=== PATIENT | male | born 1965 | race Two or more races ===

== ENCOUNTER 2016-10-21 18:49 | Inpatient (IN) | payer MEDICAID ==
[~2016-10-21] VITALS: Ht 170.2 cm; Wt 81.6 kg
[~2016-10-21 18:49] MED LIST: ACET325T53 PO; ASCO500T9 PO; BACL10TA PO; BISA10SU8 RC; FERR-58 PO; HYDR2VIA3 IVP; LINE600T2 PO; MAGN400O6 PO; MERO1VIA3 IV; MULT-24 PO; NA P133E RC; SENN8.6T6 PO; TAMS-12 PO; ZINC220C8 PO
[2016-10-21] MEDS ORDERED: IV SET PRIMARY 1 EA INFUS.SET MC ONE (19:48)
[2016-10-21] MEDS ORDERED: IV NS 0.9% 1,000 ML ONE (19:48)
[2016-10-21] MEDS ORDERED: ONDANSETRON HCL/PF 4 MG/2 ML VIAL ONE (19:48)
[2016-10-21] MEDS ORDERED: HYDROMORPHONE 1 MG/1 ML DISP.SYRIN ONE (19:48)
[2016-10-21 19:52] LABS: BASOPHILS # (AUTO) 0.1 /CMM (0.0-0.2); BASOPHILS % (AUTO) 0.8 % (0.0-2.0); DIFF TOTAL % 100 %; EOSINOPHILS % (AUTO) 0.2 % (0.0-6.0); HEMATOCRIT 31 % (39-51); HEMOGLOBIN 9.6 g/dL (13.5-17.5); LYMPHOCYTES # (AUTO) 2.3 /CMM (0.8-4.8); LYMPHOCYTES % (AUTO) 23.5 % (20.0-44.0); MEAN CORPUSCULAR HEMOGLOBIN 22 PG (26.0-33.0); MEAN CORPUSCULAR HGB CONC 31 g/dl (31.0-36.0); MEAN CORPUSCULAR VOLUME 69 fL (80-96); MONOCYTES # (AUTO) 0.5 /CMM (0.1-1.30); MONOCYTES % (AUTO) 4.9 % (2.0-12.0); NEUTROPHILS # (AUTO) 6.9 /CMM (1.8-8.9); NEUTROPHILS % (AUTO) 70.6 % (43.0-81.0); PLATELET COUNT (AUTO) 553 /CMM (150-450); RED BLOOD CELL COUNT(AUTO) 4.48 MIL/uL (4.5-6.0); WHITE BLOOD COUNT (AUTO) 9.8 K/uL (4.3-11.0)
[2016-10-21] MEDS ORDERED: ONDANSETRON HCL/PF 4 MG/2 ML VIAL IVP ONE (20:00)
[2016-10-21] MEDS ORDERED: IV NS 0.9% 1,000 ML BAG IV ONE (20:00)
[2016-10-21] MEDS ORDERED: HYDROMORPHONE INJ 2 MG/ML DISP.SYRIN IV ONE (20:00)
[2016-10-21 20:06] LABS: INR 1.02 (0.87-1.13); PROTHROMBIN TIME 10.7 SECS (9.5-12.7)
[2016-10-21 20:08] LABS: BILIRUBIN,TOTAL 0.1 mg/dL (0.2-1.0); CALCIUM, SERUM 8.4 mg/dL (8.5-10.1); CREATININE 1.3 mg/dL (0.6-1.3); INDIRECT BILIRUBIN 0.1 mg/dL (0.0-1.1); POTASSIUM 4.1 mmol/L (3.5-5.1); TOTAL PROTEIN, SERUM 8.2 g/dL (6.4-8.2)
[2016-10-21 20:22] LABS: LACTIC ACID 0.9 mmol/L (0.4-2.0)
[2016-10-21] MEDS ORDERED: CT SWABBABLE VALVE TRANS SET 1 EA INFUS.SET MC ONE (20:24)
[2016-10-21] MEDS ORDERED: IV NS 0.9% 250 ML IV ONE (20:24)
[2016-10-21] MEDS ORDERED: IOHEXOL-300 100 ML VIAL IV ONE (20:24)
[2016-10-21] MEDS ORDERED: PIPERACILLIN /TAZOBACTAM 3.375 G in IV D5W 50 ML IV ONE (20:30)
[2016-10-21 20:50] VITALS: BP 101/57
[2016-10-21] MEDS ORDERED: MAG HYDROX/AL HYDROX/SIMETH 30 ML UDC PO PRN (21:00)
[2016-10-21] MEDS ORDERED: ACETAMINOPHEN 325 MG TABLET PO PRN (21:00)
[2016-10-21] MEDS ORDERED: MORPHINE SULFATE INJ 2 MG/ML DISP.SYRIN IV PRN (21:00)
[2016-10-21] MEDS ORDERED: HYDROCODONE/APAP 5/325MG 1 EACH TABLET PO PRN (21:00)
[2016-10-21] MEDS ORDERED: FEE PK DOSING 1 MIN EA MC ONE (21:00)
[2016-10-21] MEDS ORDERED: Z GUARD REMEDY 2 OZ OINT TP PRN (21:00)
[2016-10-21] MEDS ORDERED: BISACODYL SUPP (10 MG) 10 MG/SUPP.RECT SUPP.RECT RC PRN (21:00)
[2016-10-21] MEDS ORDERED: ZOLPIDEM TARTRATE 5 MG TABLET PO PRN (21:00)
[2016-10-21] MEDS ORDERED: NA PHOS,M-B/NA PHOS,DI-BA 1 EA ENEMA RC PRN (21:00)
[2016-10-21] MEDS ORDERED: ONDANSETRON HCL/PF 4 MG/2 ML VIAL IVP PRN (21:00)
[2016-10-21] MEDS ORDERED: MAGNESIUM HYDROXIDE 30 ML UDC PO PRN (21:00)
[2016-10-21 21:10] VITALS: BP 101/57
[2016-10-21] MEDS ORDERED: IV D5W 250 ML IV ONE (21:54)
[2016-10-21] MEDS ORDERED: VANCOMYCIN 1 GM VIAL ONE (21:54)
[2016-10-21] MEDS ORDERED: SECONDARY IV SET 1 EA INFUS.SET MC ONE (21:54)
[2016-10-21] MEDS: VANCOMYCIN 1 GM in IV D5W 250 ML IV SCH (22:29)
[2016-10-21] MEDS ORDERED: HYDROMORPHONE INJ 2 MG/ML DISP.SYRIN ONE (22:41)
[2016-10-21] MEDS: HYDROMORPHONE INJ 2 MG/ML DISP.SYRIN IV PRN (22:46)
[2016-10-21] MEDS ORDERED: TAMSULOSIN 0.4 MG CAP.SR.24H ONE (23:33)
[2016-10-21] MEDS: TAMSULOSIN 0.4 MG CAP.SR.24H PO SCH (23:42)
[2016-10-22] VITALS (7 sets, daily range): BP systolic 89–113; BP diastolic 52–65
[2016-10-22] MEDS: HYDROMORPHONE INJ 2 MG/ML DISP.SYRIN IV PRN ×6 (02:47→23:22)
[2016-10-22] MEDS ORDERED: SECONDARY IV SET 1 EA INFUS.SET MC ONE ×2 (06:53→21:41)
[2016-10-22 06:57] LABS: BASOPHILS # (AUTO) 0.1 /CMM (0.0-0.2); BASOPHILS % (AUTO) 0.8 % (0.0-2.0); DIFF TOTAL % 100 %; EOSINOPHILS # (AUTO) 0.1 /CMM (0.0-0.7); HEMATOCRIT 28 % (39-51); HEMOGLOBIN 8.7 g/dL (13.5-17.5); LYMPHOCYTES # (AUTO) 2.5 /CMM (0.8-4.8); LYMPHOCYTES % (AUTO) 28.1 % (20.0-44.0); MEAN CORPUSCULAR HEMOGLOBIN 22 PG (26.0-33.0); MEAN CORPUSCULAR HGB CONC 32 g/dl (31.0-36.0); MEAN CORPUSCULAR VOLUME 69 fL (80-96); MONOCYTES # (AUTO) 0.4 /CMM (0.1-1.30); NEUTROPHILS # (AUTO) 5.8 /CMM (1.8-8.9); NEUTROPHILS % (AUTO) 65.1 % (43.0-81.0); PLATELET COUNT (AUTO) 463 /CMM (150-450); RED BLOOD CELL COUNT(AUTO) 3.98 MIL/uL (4.5-6.0); WHITE BLOOD COUNT (AUTO) 8.9 K/uL (4.3-11.0)
[2016-10-22] MEDS: PIPERACILLIN /TAZOBACTAM 3.375 G in IV D5W 50 ML IV SCH ×2 (07:04→12:26)
[2016-10-22 07:22] LABS: ALBUMIN 2.7 g/dL (3.4-5.0); BILIRUBIN,TOTAL 0.1 mg/dL (0.2-1.0); CALCIUM, SERUM 8.3 mg/dL (8.5-10.1); PHOSPHORUS 3.3 mg/dL (2.5-4.9); POTASSIUM 3.8 mmol/L (3.5-5.1); TOTAL PROTEIN, SERUM 7.4 g/dL (6.4-8.2)
[2016-10-22 09:02] LABS: ANISOCYTOSIS 3+; BAND % (MANUAL) 3 % (0.0-5.0); BASOPHILS % (MANUAL) 1 % (0.0-2.0); EOSINOPHILS % (MANUAL) 3 % (0-4); LYMPHOCYTES % (MANUAL) 30 % (16-48); MICROCYTOSIS 3+; PLATELET ESTIMATE INCREASED
[2016-10-22 09:03] LABS: HYPOCHROMASIA 1+
[2016-10-22] MEDS: FERROUS SULFATE (325 MG) 325 MG/TAB TABLET PO SCH (09:25)
[2016-10-22] MEDS: SENNOSIDES 8.6 MG TABLET PO SCH (09:25)
[2016-10-22] MEDS: ASCORBIC ACID 500 MG TABLET PO SCH (09:25)
[2016-10-22] MEDS: MULTIVITAMINS,THERAPEUTIC 1 UDTAB TABLET PO SCH (09:25)
[2016-10-22] MEDS: PANTOPRAZOLE 40 MG VIAL IV SCH (09:25)
[2016-10-22] MEDS: BACLOFEN (10 MG) 10 MG TABLET PO SCH ×3 (09:25→17:00)
[2016-10-22] MEDS: ZINC SULFATE 220 MG CAPSULE PO SCH (09:29)
[2016-10-22] MEDS: VANCOMYCIN 1 GM in IV D5W 250 ML IV SCH ×2 (09:30→22:22)
[2016-10-22] MEDS: IV NS 0.9% 1,000 ML IV PRN ×2 (09:32→22:34)
[2016-10-22 12:45] LABS: IRON, SERUM 17 ug/dl (50-175); PERCENT SATURATION 6 % (14-33); TOTAL IRON BINDING CAPACITY 283 ug/dl (250-450)
[2016-10-22] MEDS: MEROPENEM 500 MG in IV NS 0.9% 50 ML IV SCH (21:37)
[2016-10-22] MEDS: TAMSULOSIN 0.4 MG CAP.SR.24H PO SCH (21:37)
[2016-10-22] MEDS ORDERED: IV NS 0.9% 1,000 ML ONE (22:29)
[2016-10-23] MEDS: HYDROMORPHONE INJ 2 MG/ML DISP.SYRIN IV PRN ×5 (03:13→20:16)
[2016-10-23] MEDS: MEROPENEM 500 MG in IV NS 0.9% 50 ML IV SCH ×3 (04:35→21:47)
[2016-10-23 08:00] VITALS: BP 105/70
[2016-10-23] MEDS: FERROUS SULFATE (325 MG) 325 MG/TAB TABLET PO SCH (08:00)
[2016-10-23] MEDS: PANTOPRAZOLE 40 MG VIAL IV SCH (08:27)
[2016-10-23] MEDS: MULTIVITAMINS,THERAPEUTIC 1 UDTAB TABLET PO SCH (09:00)
[2016-10-23] MEDS: ASCORBIC ACID 500 MG TABLET PO SCH (09:00)
[2016-10-23] MEDS: BACLOFEN (10 MG) 10 MG TABLET PO SCH ×3 (09:00→17:00)
[2016-10-23] MEDS: SENNOSIDES 8.6 MG TABLET PO SCH ×2 (09:00→14:54)
[2016-10-23] MEDS: ZINC SULFATE 220 MG CAPSULE PO SCH (09:00)
[2016-10-23 09:14] LABS: CALCIUM, SERUM 8.2 mg/dL (8.5-10.1); CREATININE 0.9 mg/dL (0.6-1.3); POTASSIUM 3.3 mmol/L (3.5-5.1)
[2016-10-23] MEDS: VANCOMYCIN 1 GM in IV D5W 250 ML IV SCH ×2 (09:23→22:00)
[2016-10-23] MEDS ORDERED: POTASSIUM CHLORIDE 20 MEQ TAB.PRT.SR PO ONE (10:30)
[2016-10-23 14:19] LABS: KETONES,URINE NEGATIVE (NEGATIVE); LEUKOCYTE ESTERASE ,URINE 3+ (NEGATIVE)
[2016-10-23 14:25] LABS: ADD UA MICROSCOPIC YES
[2016-10-23 14:29] LABS: ADD URINE CULTURE YES; WBC,URINE 81-100 /HPF (0-3)
[2016-10-23 16:00] VITALS: BP 107/78
[2016-10-23 20:00] VITALS: BP 116/71
[2016-10-23] MEDS: IV NS 0.9% 1,000 ML IV PRN (20:19)
[2016-10-23] MEDS: MUPIROCIN OINT 2% 22 GM TUBE SCH (21:00)
[2016-10-23 22:00] VITALS: BP 112/71
[2016-10-23] MEDS: TAMSULOSIN 0.4 MG CAP.SR.24H PO SCH (22:00)
[2016-10-23] MEDS ORDERED: MUPIROCIN OINT 2% 22 GM TUBE ONE (22:22)
[2016-10-24] MEDS: VANCOMYCIN 1 GM in IV D5W 250 ML IV SCH ×2 (00:06→23:00)
[2016-10-24] MEDS: HYDROMORPHONE INJ 2 MG/ML DISP.SYRIN IV PRN ×6 (00:15→20:46)
[2016-10-24] MEDS: MEROPENEM 500 MG in IV NS 0.9% 50 ML IV SCH ×3 (05:05→21:17)
[2016-10-24 07:06] LABS: CREATININE 0.9 mg/dL (0.6-1.3); POTASSIUM 3.1 mmol/L (3.5-5.1)
[2016-10-24 08:00] VITALS: BP 121/66
[2016-10-24] MEDS: PANTOPRAZOLE 40 MG VIAL IV SCH (08:21)
[2016-10-24] MEDS: BACLOFEN (10 MG) 10 MG TABLET PO SCH ×4 (08:29→16:38)
[2016-10-24] MEDS: MULTIVITAMINS,THERAPEUTIC 1 UDTAB TABLET PO SCH (08:30)
[2016-10-24] MEDS: FERROUS SULFATE (325 MG) 325 MG/TAB TABLET PO SCH (08:30)
[2016-10-24] MEDS: ZINC SULFATE 220 MG CAPSULE PO SCH (08:31)
[2016-10-24] MEDS: ASCORBIC ACID 500 MG TABLET PO SCH (08:31)
[2016-10-24] MEDS: SENNOSIDES 8.6 MG TABLET PO SCH (08:48)
[2016-10-24] MEDS: MUPIROCIN OINT 2% 22 GM TUBE SCH ×2 (09:00→21:21)
[2016-10-24] MEDS ORDERED: POTASSIUM CL. PREMIX PERIPHER. 50 ML IV SCH (10:00)
[2016-10-24] MEDS ORDERED: POTASSIUM CHLORIDE 20 MEQ TAB.PRT.SR PO ONE (10:00)
[2016-10-24 16:00] VITALS: BP 142/90
[2016-10-24 20:00] VITALS: BP 106/62
[2016-10-24] MEDS: TAMSULOSIN 0.4 MG CAP.SR.24H PO SCH (21:22)
[2016-10-25] MEDS: HYDROMORPHONE INJ 2 MG/ML DISP.SYRIN IV PRN ×4 (01:23→13:41)
[2016-10-25] MEDS: IV NS 0.9% 1,000 ML IV PRN (05:13)
[2016-10-25] MEDS: MEROPENEM 500 MG in IV NS 0.9% 50 ML IV SCH ×2 (05:14→12:47)
[2016-10-25 07:11] LABS: CALCIUM, SERUM 8.2 mg/dL (8.5-10.1); POTASSIUM 3.6 mmol/L (3.5-5.1)
[2016-10-25 08:00] VITALS: BP 112/64
[2016-10-25] MEDS: MUPIROCIN OINT 2% 22 GM TUBE SCH (09:00)
[2016-10-25] MEDS: SENNOSIDES 8.6 MG TABLET PO SCH (09:00)
[2016-10-25 09:20] VITALS: BP 112/64
[2016-10-25] MEDS: ASCORBIC ACID 500 MG TABLET PO SCH (09:41)
[2016-10-25] MEDS: FERROUS SULFATE (325 MG) 325 MG/TAB TABLET PO SCH (09:41)
[2016-10-25] MEDS: MULTIVITAMINS,THERAPEUTIC 1 UDTAB TABLET PO SCH (09:41)
[2016-10-25] MEDS: PANTOPRAZOLE 40 MG VIAL IV SCH (09:41)
[2016-10-25] MEDS: ZINC SULFATE 220 MG CAPSULE PO SCH (09:41)
[2016-10-25] MEDS: BACLOFEN (10 MG) 10 MG TABLET PO SCH ×2 (09:41→12:46)
[2016-10-25 16:00] VITALS: BP 92/55
[2016-10-25] MEDS ORDERED: FLU VACC QS 2016-17(36MOS+)/PF 0.5 ML DISP.SYRIN IM ONE (16:00)
== END 2016-10-25 17:00 | DRG 383 ==
LOC: ER 18:52 → MED 20:30
PROVIDERS: ADMIT Family Medicine; ATTEND Family Medicine
DX: L03.311 Cellulitis of abdominal wall (principal); E43 Unspecified severe protein-calorie malnutrition; L89.152 Pressure ulcer of sacral region, stage 2; K63.2 Fistula of intestine; G82.20 Paraplegia, unspecified; L02.211 Cutaneous abscess of abdominal wall; Y92.9 Unspecified place or not applicable; I25.10 Atherosclerotic heart disease of native coronary artery without angina pectoris; J44.9 Chronic obstructive pulmonary disease, unspecified; I12.9 Hypertensive chronic kidney disease with stage 1 through stage 4 chronic kidney disease, or unspecified chronic kidney disease; N18.9 Chronic kidney disease, unspecified; D64.9 Anemia, unspecified; D47.3 Essential (hemorrhagic) thrombocythemia; D50.9 Iron deficiency anemia, unspecified; G89.4 Chronic pain syndrome; Z22.322 Carrier or suspected carrier of Methicillin resistant Staphylococcus aureus; Z87.891 Personal history of nicotine dependence; Z68.28 Body mass index [BMI] 28.0-28.9, adult; N39.0 Urinary tract infection, site not specified; M19.90 Unspecified osteoarthritis, unspecified site; Z93.3 Colostomy status; Z90.5 Acquired absence of kidney; W34.00XS Accidental discharge from unspecified firearms or gun, sequela; Z93.2 Ileostomy status; N40.1 Benign prostatic hyperplasia with lower urinary tract symptoms
CPT/HCPCS: 36415; 80048-TC; 80053-TC; 80076-TC; 80202-TC; 81000-TC; 83540-TC; 83605-TC; 84100-TC; 85025-TC; 85730-TC; 87040-TC; 87081-TC; 87086-TC; A4216; A4606; A6253; A6403; C9113; J1170; J2185; J2405; J2543; J3370; J7030; J7050; J7060; Q2036; Q9967; Z7610

== ENCOUNTER 2017-02-14 13:44 | Inpatient (IN) | payer MEDICAID ==
[~2017-02-14] VITALS: Ht 167.6 cm; Wt 99.6 kg
--- NOTE | 2017-02-14 13:56 | NUR ---
PT [id number] FROM [facility]: BACK PAIN. ABDOMINAL ABSCESS. PLACED ON MONITOR. VSS. AWAITING MD ORDER
--- NOTE | 2017-02-14 13:56 | NUR ---
PT HAS BILLY PICC LINE #18
--- NOTE | 2017-02-14 14:04 | NUR ---
DR EM AT BEDSIDE FOR EVAL
[2017-02-14] MEDS ORDERED: HYDROMORPHONE INJ 2 MG/ML DISP.SYRIN ONE ×2 (14:17→15:42)
--- NOTE | 2017-02-14 14:20 | NUR ---
PT TAKEN TO CT VIA [facility]
[2017-02-14] MEDS ORDERED: HYDROMORPHONE INJ 2 MG/ML DISP.SYRIN IV ONE ×2 (14:30→16:00)
[2017-02-14 14:37] LABS: BASOPHILS # (AUTO) 0.1 /CMM (0.0-0.2); BASOPHILS % (AUTO) 0.5 % (0.0-2.0); EOSINOPHILS % (AUTO) 0.2 % (0.0-6.0); HEMATOCRIT 40 % (39-51); LYMPHOCYTES # (AUTO) 2.6 /CMM (0.8-4.8); LYMPHOCYTES % (AUTO) 22.1 % (20.0-44.0); MEAN CORPUSCULAR HEMOGLOBIN 26 PG (26.0-33.0); MEAN CORPUSCULAR HGB CONC 33 g/dl (31.0-36.0); MEAN CORPUSCULAR VOLUME 79 fL (80-96); MONOCYTES # (AUTO) 0.7 /CMM (0.1-1.30); MONOCYTES % (AUTO) 5.7 % (2.0-12.0); NEUTROPHILS # (AUTO) 8.1 /CMM (1.8-8.9); NEUTROPHILS % (AUTO) 71.5 % (43.0-81.0); PLATELET COUNT (AUTO) 297 /CMM (150-450); RED BLOOD CELL COUNT(AUTO) 5.02 MIL/uL (4.5-6.0); WHITE BLOOD COUNT (AUTO) 11.5 K/uL (4.3-11.0)
[2017-02-14 14:38] LABS: CALCIUM, SERUM 8.6 mg/dL (8.5-10.1); CREATININE 0.9 mg/dL (0.6-1.3)
[2017-02-14 14:43] LABS: INR 0.95 (0.87-1.13); PROTHROMBIN TIME 9.9 SECS (9.5-12.7)
[2017-02-14 14:44] LABS: ALBUMIN 3.6 g/dL (3.4-5.0); BILIRUBIN,DIRECT 0.1 mg/dL (0.0-0.2); BILIRUBIN,TOTAL 0.2 mg/dL (0.2-1.0); TOTAL PROTEIN, SERUM 8.2 g/dL (6.4-8.2)
[2017-02-14] MEDS ORDERED: PIPERACILLIN /TAZOBACTAM 3.375 G in IV D5W 50 ML IV ONE (15:49)
[2017-02-14] MEDS ORDERED: IV SET PRIMARY PUMP SET 1 EA INFUS.SET MC ONE ×2 (15:50→20:44)
[2017-02-14] MEDS ORDERED: HYDR-552 PO ×2 (15:51)
[2017-02-14] MEDS ORDERED: VIT1CAPS32 PO (15:51)
[2017-02-14] MEDS ORDERED: ZOLP5TAB2 PO (15:51)
[2017-02-14] MEDS ORDERED: ONDA4TAB5 PO (15:51)
[2017-02-14] MEDS ORDERED: PANT40TA2 PO (15:51)
--- NOTE | 2017-02-14 16:08 | NUR ---
PATIENT ASSIGNED TO 325-1 DX ABDOMINAL ABSCESS
--- NOTE | 2017-02-14 16:13 | NUR ---
GAVE REPORT TO KYLEE JIMENEZ MEDSURG 325-1 DX ABDOMINAL ABSCESS. SAURABH MARTINEZ NP ADMITTING. TRANSFER BY [facility] VIA [facility]
[2017-02-14] MEDS ORDERED: ONDANSETRON HCL/PF 4 MG/2 ML VIAL IVP PRN (17:30)
[2017-02-14] MEDS ORDERED: NA PHOS,M-B/NA PHOS,DI-BA 1 EA ENEMA RC PRN (17:30)
[2017-02-14] MEDS ORDERED: MAGNESIUM HYDROXIDE 30 ML UDC PO PRN (17:30)
[2017-02-14] MEDS ORDERED: Z GUARD REMEDY 2 OZ OINT TP PRN (17:30)
[2017-02-14] MEDS ORDERED: ACETAMINOPHEN 325 MG TABLET PO PRN (17:30)
[2017-02-14] MEDS ORDERED: MAG HYDROX/AL HYDROX/SIMETH 30 ML UDC PO PRN (17:30)
[2017-02-14] MEDS ORDERED: BISACODYL SUPP (10 MG) 10 MG/SUPP.RECT SUPP.RECT RC PRN (17:30)
[2017-02-14] MEDS ORDERED: ZOLPIDEM TARTRATE 5 MG TABLET PO PRN (17:30)
[2017-02-14] MEDS ORDERED: HYDROMORPHONE MDV 2 MG/ML VIAL IV PRN (17:30)
[2017-02-14] MEDS ORDERED: PIPERACILLIN /TAZOBACTAM 3.375 G in IV D5W 50 ML IV SCH (18:00)
--- NOTE | 2017-02-14 18:00 | NUR ---
AM RN NOTE Received patient from ER via kenneth, A/O X3 verbally responsive. No SOB noted resp even and non-labored. Skin warm and dry to touch. PICC line intact and patent on BILLY #18. Body assessment done, able to take pictures of abdominal area but pt refused to take pics of other parts of his body. Will endorse to next shift. Ileostomy and colostomy intact. Bed in low locked position. Diet ordered. Will continue to monitor. Call light with in reach.
[2017-02-14] MEDS: HYDROMORPHONE INJ 2 MG/ML DISP.SYRIN IV PRN ×2 (18:34→23:05)
--- NOTE | 2017-02-14 19:15 | NUR ---
AM RN NOTE Patient awake, lying in his bed. Verbally responsive. Pain meds given for back pain with effective results. Endorsed care to next shift nurse and endorse about skin pictures.
--- NOTE | 2017-02-14 19:30 | NUR ---
RN NOTE; RECEIVED PT SITTING IN BED AWAKE AND ALERT. BREATHING EVENLY. NO SOB. NO DISTRESS. SKIN WARM AND DRY. COLOSTOMY BAGS IN PLACE. DRAINING WELL. DRESSING ON THE ABD INTACT AND DRY. NEEDS ATTENDED . ASSISTED W/ ADLS. CALL LIGHT WITHIN REACH. WILL CONT TO MONITOR
[2017-02-14 20:00] VITALS: BP 108/69
[2017-02-14] MEDS ORDERED: SECONDARY IV SET 1 EA INFUS.SET MC ONE (20:44)
[2017-02-14] MEDS: IV NS 0.9% 1,000 ML IV PRN (20:58)
[2017-02-14] MEDS: HYDROCODONE/APAP 5/325MG 1 EACH TABLET PO PRN (21:04)
--- NOTE | 2017-02-14 21:04 | NUR ---
norco given per pt's request for c/o ble, abd and lower back pain. will cont to monitor
[2017-02-14] MEDS: PIPERACILLIN /TAZOBACTAM 3.375 G in IV D5W 50 ML IV SCH (21:10)
[2017-02-14] MEDS: TAMSULOSIN 0.4 MG CAP.SR.24H PO SCH (21:16)
[2017-02-15] MEDS: HYDROMORPHONE INJ 2 MG/ML DISP.SYRIN IV PRN ×5 (03:05→20:22)
--- NOTE | 2017-02-15 03:08 | NUR ---
DILAUDID GIVEN FOR C/O SEVERE GEN BODY PAIN INCLUDING BLES AND BACK. WILL CONT TO MONITOR
[2017-02-15] MEDS: PIPERACILLIN /TAZOBACTAM 3.375 G in IV D5W 50 ML IV SCH ×4 (04:13→21:47)
--- NOTE | 2017-02-15 06:48 | NUR ---
RN NOTE; PT IN BED DOZING INTERMITTENTLY. BREATHING EVENLY. NO SOB. NO DISTRESS. NO ACUTE CHANGES DURING THE NIGHT . W/ ON AND OFF C/O PAIN. PAIN MEDICATIONS GIVEN ORDERED PER PT'S REQUEST. ASSISTED W/ ADLS, CALL LIGHT WITHIN REACH. WILL CONT TO MONITOR AND WILL ENDORSE TO AM SHIFT FOR SHERINE .
--- NOTE | 2017-02-15 07:30 | NUR ---
MS/RN OPENING NOTE PT. IS IN BED SLEEPING, RESPONDS TO NAME. PT. IS A&OX4. NO S/S OF SOB, NO SIGNS OF DISTRESS. PT. HAS A LEFT UPPER ARM PICC LINE WITH IV FLUIDS INFUSING AT 75ML/HR. PT. HAS URINAL NEAR BEDSIDE, AND VISIBLE ABDOMINAL FISTULA. BED IS IN LOW POSITION, 2 SIDE RAILS UP, CALL LIGHT WITHIN REACH, AND ALL NEEDS ATTENDED TO. WILL CONTINUE TO MONITOR PT.
[2017-02-15 07:44] LABS: BASOPHILS % (AUTO) 0.5 % (0.0-2.0); EOSINOPHILS # (AUTO) 0.1 /CMM (0.0-0.7); EOSINOPHILS % (AUTO) 1.4 % (0.0-6.0); HEMATOCRIT 37 % (39-51); LYMPHOCYTES # (AUTO) 2.8 /CMM (0.8-4.8); LYMPHOCYTES % (AUTO) 32.6 % (20.0-44.0); MEAN CORPUSCULAR HEMOGLOBIN 26 PG (26.0-33.0); MEAN CORPUSCULAR HGB CONC 32 g/dl (31.0-36.0); MEAN CORPUSCULAR VOLUME 80 fL (80-96); MONOCYTES # (AUTO) 0.6 /CMM (0.1-1.30); MONOCYTES % (AUTO) 6.6 % (2.0-12.0); NEUTROPHILS # (AUTO) 5.1 /CMM (1.8-8.9); NEUTROPHILS % (AUTO) 58.9 % (43.0-81.0); PLATELET COUNT (AUTO) 293 /CMM (150-450); RDW COEFFICIENT OF VARIATION 17.9 (11.5-15.0); RED BLOOD CELL COUNT(AUTO) 4.68 MIL/uL (4.5-6.0); WHITE BLOOD COUNT (AUTO) 8.6 K/uL (4.3-11.0)
[2017-02-15 07:54] LABS: CALCIUM, SERUM 8.2 mg/dL (8.5-10.1); CREATININE 0.8 mg/dL (0.6-1.3); MAGNESIUM 1.8 mg/dL (1.8-2.4); PHOSPHORUS 3.1 mg/dL (2.5-4.9); POTASSIUM 3.7 mmol/L (3.5-5.1)
[2017-02-15 08:00] VITALS: BP 105/50
--- NOTE | 2017-02-15 08:00 | NUR ---
MS/RN PT. REFUSED TO HAVE VITAL SIGNS TAKEN WHEN CONDUCTOR FREIGHT MADE ROUNDS. PT. AGREED TO HAVE VITALS TAKEN AT 0900.
[2017-02-15 08:01] LABS: THYROID STIMULATING HORMONE 0.729 uIU/mL (0.358-3.74)
[2017-02-15] MEDS: BACLOFEN (10 MG) 10 MG TABLET PO SCH ×3 (08:58→16:24)
[2017-02-15] MEDS: SENNOSIDES 8.6 MG TABLET PO SCH (08:58)
[2017-02-15] MEDS: PANTOPRAZOLE 40 MG TABLET.DR PO SCH (08:58)
[2017-02-15] MEDS: FERROUS SULFATE (325 MG) 325 MG/TAB TABLET PO SCH (08:58)
[2017-02-15] MEDS: ASCORBIC ACID 500 MG TABLET PO SCH (08:58)
[2017-02-15 09:00] VITALS: BP 105/50
[2017-02-15] MEDS: HYDROCODONE/APAP 5/325MG 1 EACH TABLET PO PRN (09:13)
[2017-02-15] MEDS: IV NS 0.9% 1,000 ML IV PRN (13:38)
[2017-02-15 16:00] VITALS: BP 117/74
--- NOTE | 2017-02-15 19:30 | NUR ---
RN NOTE; RECEIVED PT SITTING IN THE BED AWAKE AND ALERT. BREATHING EVENLY. NO SOB. NO DISTRESS. ON AND OFF C/O BLE AND CHRONIC LOW BACK PAIN. OSTOMIE IN PLACE. ON ONGOING IVF AND ATBs W/ NO COMPLICATIONS. NEED ATTENDED. CALL LIGHT WITHIN REACH, WILL CONT TO MONITOR.
[2017-02-15 20:00] VITALS: BP 111/57
--- NOTE | 2017-02-15 20:25 | NUR ---
DILAUDID GIVEN FOR C/O SEVERE GEN BODY PAIN INCLUDING BLES AND BACK. WILL CONT TO MONITOR
[2017-02-15] MEDS: TAMSULOSIN 0.4 MG CAP.SR.24H PO SCH (21:47)
[2017-02-15 22:25] LABS: APPEARANCE,URINE CLEAR (CLEAR); BILIRUBIN,URINE NEGATIVE (NEGATIVE); BLOOD, URINE NEGATIVE Ery/uL (NEGATIVE); COLOR,URINE YELLOW (YELLOW); KETONES,URINE NEGATIVE (NEGATIVE); LEUKOCYTE ESTERASE ,URINE NEGATIVE (NEGATIVE); NITRITE, URINE NEGATIVE (NEGATIVE); PROTEIN,URINE TRACE mg/dl (NEGATIVE); UGLUCOSE NEGATIVE (NEGATIVE); UROBILINOGEN,URINE 0.2 EU/dL (0.2)
[2017-02-15 22:30] LABS: ADD URINE CULTURE NO; BACTERIA,URINE None seen /HPF (None Seen); MUCUS,URINE Few /LPF (None Seen); RBC,URINE 0-2 /HPF (0-2); SQUAMOUS EPITHELIAL CELL,UR Few /HPF (None Seen); WBC,URINE 0-2 /HPF (0-3)
[2017-02-16] MEDS: HYDROMORPHONE INJ 2 MG/ML DISP.SYRIN IV PRN ×7 (00:26→23:25)
[2017-02-16] MEDS: IV NS 0.9% 1,000 ML IV PRN (00:27)
--- NOTE | 2017-02-16 00:27 | NUR ---
DILAUDID GIVEN FOR C/O SEVERE GEN BODY PAIN INCLUDING BLES AND BACK. WILL CONT TO MONITOR
[2017-02-16] MEDS: PIPERACILLIN /TAZOBACTAM 3.375 G in IV D5W 50 ML IV SCH (04:29)
--- NOTE | 2017-02-16 04:32 | NUR ---
DILAUDID GIVEN FOR C/O SEVERE GEN BODY PAIN INCLUDING BLES AND BACK. WILL CONT TO MONITOR
--- NOTE | 2017-02-16 06:16 | NUR ---
RN NOTE; PT IN BED AWAKE AND ALERT. BREATHING EVENLY. NO SOB. NO DISTRESS. NO ACUTE CHANGES DURING THE NIGHT . W/ ON AND OFF C/O PAIN. PAIN MEDICATIONS GIVEN ORDERED PER PT'S REQUEST. ASSISTED W/ ADLS, CALL LIGHT WITHIN REACH. WILL CONT TO MONITOR AND WILL ENDORSE TO AM SHIFT FOR SHERINE .
--- NOTE | 2017-02-16 07:30 | NUR ---
MS RN RECEIVED ON BED, AWAKE,ALERT,ORIENTED X3 NOT IN ANY FORM OF DISTRESS, RESPIRATIONS EVEN AND UNLABORED,NO SOB NOTED, LUNGS ARE CLEAR,ABDOMEN SOFT,POSITIVE BOWEL SOUNDS, DENIES PAIN AT THIS TIME, WILL MONITOR PATIENT'S CONDITION.
[2017-02-16 08:00] VITALS: BP 96/56
--- NOTE | 2017-02-16 08:30 | NUR ---
MS JIMENEZ BREAKFAST SERVED,DUE MEDS GIVEN,TOLERATED WELL.
[2017-02-16 08:44] LABS: BASOPHILS % (AUTO) 0.6 % (0.0-2.0); EOSINOPHILS # (AUTO) 0.1 /CMM (0.0-0.7); EOSINOPHILS % (AUTO) 1.5 % (0.0-6.0); HEMATOCRIT 37 % (39-51); LYMPHOCYTES # (AUTO) 2.4 /CMM (0.8-4.8); LYMPHOCYTES % (AUTO) 30.7 % (20.0-44.0); MEAN CORPUSCULAR HEMOGLOBIN 26 PG (26.0-33.0); MEAN CORPUSCULAR HGB CONC 33 g/dl (31.0-36.0); MEAN CORPUSCULAR VOLUME 80 fL (80-96); MONOCYTES # (AUTO) 0.6 /CMM (0.1-1.30); NEUTROPHILS # (AUTO) 4.8 /CMM (1.8-8.9); NEUTROPHILS % (AUTO) 60.2 % (43.0-81.0); PLATELET COUNT (AUTO) 231 /CMM (150-450); RED BLOOD CELL COUNT(AUTO) 4.59 MIL/uL (4.5-6.0); WHITE BLOOD COUNT (AUTO) 7.9 K/uL (4.3-11.0)
[2017-02-16] MEDS: SENNOSIDES 8.6 MG TABLET PO SCH (08:46)
[2017-02-16] MEDS: ASCORBIC ACID 500 MG TABLET PO SCH (08:46)
[2017-02-16] MEDS: FERROUS SULFATE (325 MG) 325 MG/TAB TABLET PO SCH (08:46)
[2017-02-16] MEDS: PANTOPRAZOLE 40 MG TABLET.DR PO SCH (08:46)
[2017-02-16] MEDS: BACLOFEN (10 MG) 10 MG TABLET PO SCH ×3 (08:46→18:56)
[2017-02-16 09:14] LABS: CALCIUM, SERUM 8.1 mg/dL (8.5-10.1); CREATININE 0.8 mg/dL (0.6-1.3); MAGNESIUM 1.8 mg/dL (1.8-2.4); POTASSIUM 3.9 mmol/L (3.5-5.1)
--- NOTE | 2017-02-16 11:32 | NUR ---
WOUND CARE CONSULT: PT REFUSED SKIN ASSESSMENT EXCEPT FOR ABDOMINAL AREA. PT NOTED TO HAVE 2 FISTULAS TO ABDOMEN WHICH ARE PROTECTED WITH MEPILEX. SCANT PINK DRAINAGE NOTED. COLOSTOMY NOTED WITH POUCH. RECOMMEND LOW AIRLOSS BED FOR DEX SCORE OF 12. DISCUSSED WITH NURSING STAFF. WILL SEE PRN. IN AGREEMENT WITH PLAN OF CARE.
[2017-02-16] MEDS: MEROPENEM 1 G in IV NS 0.9% 100 ML IV SCH ×2 (14:54→21:38)
[2017-02-16 16:00] VITALS: BP 113/59
--- NOTE | 2017-02-16 17:00 | NUR ---
MS RN PATIENT TRANSFERRED TO ROOM 309 BED 1 DUE TO OTHER PATIENT IS ISOLATION FOR MRSA.
--- NOTE | 2017-02-16 18:16 | NUR ---
MS RN ON BED, NO DISTRESS NOTED,ALL NEEDS ATTENDED.
[2017-02-16 20:00] VITALS: BP 97/61
[2017-02-16] MEDS: TAMSULOSIN 0.4 MG CAP.SR.24H PO SCH (21:38)
[2017-02-16] MEDS: HYDROCODONE/APAP 5/325MG 1 EACH TABLET PO PRN (21:52)
[2017-02-17] MEDS: HYDROMORPHONE INJ 2 MG/ML DISP.SYRIN IV PRN ×4 (03:38→15:45)
[2017-02-17] MEDS: MEROPENEM 1 G in IV NS 0.9% 100 ML IV SCH ×2 (04:35→13:01)
[2017-02-17] MEDS: PANTOPRAZOLE 40 MG TABLET.DR PO SCH (07:41)
--- NOTE | 2017-02-17 07:42 | NUR ---
MS/RN OPENING NOTE PATIENT RECEIVED AWAKE IN BED. ALERT AND ORIENTED X4. VERBALLY RESPONSIVE WITH COMPLAINTS OF GENERALIZED PAIN, DILAUDID 2MG IV GIVEN AND WILL MONITOR EFFECTIVENESS OF PAIN MED. PATIENT REFUSED BLOOD WORKS AT THIS TIME AND AIR SHOVEL OPERATOR WILL COME AND TRY AGAIN LATER THIS MORNING. ON ROOM AIR, NO S/S OF SOB. LEFT UPPER ARM PICC LINE INTACT WITH IVF INFUSING AT 75ML/HR. PT. COLOSTOMY BAG NOTED WITH SMALL AMOUNT OF LOOSE YELLOW FECES. PATIENT HAS URINAL AT BEDSIDE. CALL LIGHT WITHIN REACH. BED IS IN LOW POSITION, ROBBIN WITH 2 SIDE RAILS UP FOR SAFETY. WILL CONTINUE TO MONITOR PT ACCORDINGLY.
[2017-02-17 08:00] VITALS: BP 128/65
[2017-02-17 08:19] LABS: BASOPHILS # (AUTO) 0.1 /CMM (0.0-0.2); BASOPHILS % (AUTO) 1.2 % (0.0-2.0); EOSINOPHILS # (AUTO) 0.1 /CMM (0.0-0.7); EOSINOPHILS % (AUTO) 1.3 % (0.0-6.0); HEMATOCRIT 38 % (39-51); HEMOGLOBIN 12.4 g/dL (13.5-17.5); LYMPHOCYTES # (AUTO) 2.4 /CMM (0.8-4.8); LYMPHOCYTES % (AUTO) 28.5 % (20.0-44.0); MEAN CORPUSCULAR HEMOGLOBIN 26 PG (26.0-33.0); MEAN CORPUSCULAR HGB CONC 33 g/dl (31.0-36.0); MEAN CORPUSCULAR VOLUME 80 fL (80-96); MONOCYTES # (AUTO) 0.4 /CMM (0.1-1.30); MONOCYTES % (AUTO) 5.1 % (2.0-12.0); NEUTROPHILS # (AUTO) 5.5 /CMM (1.8-8.9); NEUTROPHILS % (AUTO) 63.9 % (43.0-81.0); PLATELET COUNT (AUTO) 302 /CMM (150-450); WHITE BLOOD COUNT (AUTO) 8.6 K/uL (4.3-11.0)
[2017-02-17] MEDS: SENNOSIDES 8.6 MG TABLET PO SCH (08:38)
[2017-02-17] MEDS: FERROUS SULFATE (325 MG) 325 MG/TAB TABLET PO SCH (08:38)
[2017-02-17] MEDS: BACLOFEN (10 MG) 10 MG TABLET PO SCH ×3 (08:38→17:59)
[2017-02-17] MEDS: ASCORBIC ACID 500 MG TABLET PO SCH (08:38)
[2017-02-17 08:51] LABS: CALCIUM, SERUM 8.4 mg/dL (8.5-10.1); CREATININE 0.9 mg/dL (0.6-1.3); MAGNESIUM 1.8 mg/dL (1.8-2.4); PHOSPHORUS 3.1 mg/dL (2.5-4.9); POTASSIUM 4.2 mmol/L (3.5-5.1)
[2017-02-17] MEDS: HYDROCODONE/APAP 5/325MG 1 EACH TABLET PO PRN ×2 (11:30→17:59)
[2017-02-17] MEDS ORDERED: ERTA1VIA IJ (12:35)
[2017-02-17 16:00] VITALS: BP 132/70
--- NOTE | 2017-02-17 18:54 | NUR ---
RN DISCHARGED NOTES PATIENT DISCHARGED TO [facility] AT 1845H ACCOMPANIED BY 2 EMT'S IN STABLE CONDITION. ALERT AND ORIENTED X4, NO ACUTE SIGNS OF DISTRESS DURING DISCHARGE VOICED. V/S CHECKED AND RECORDED. PHOTOS OF SKIN WOUNDS ON ABDOMEN TAKEN AND FILED. PATIENT REFUSED SKIN ASSESSMENT ON OTHERS PARTS OF BODY, HE SAID THAT HIS ONLY WOUNDS ARE IN THE ABDOMEN. BELONGINGS COUNTED, CHECKED AND SIGNED FORM. HEALTH TEACHINGS GIVEN TO PATIENT AND VERBALIZED UNDERSTANDING. REPORT GIVEN TO GIN CHARGE NURSE OF [facility] THAT PATIENT IS TO BE TRANSFERRED IN THEIR FACILITY. MD AND CHARGE NURSE AWARE OF PT'S DISCHARGE.
== END 2017-02-17 18:50 | DRG 252 ==
LOC: ER 13:46 → MED 16:23
PROVIDERS: ADMIT Contractor; ATTEND Contractor
DX: K94.09 Other complications of colostomy (principal); G82.20 Paraplegia, unspecified; L03.311 Cellulitis of abdominal wall; L02.211 Cutaneous abscess of abdominal wall; F41.9 Anxiety disorder, unspecified; I10 Essential (primary) hypertension; I25.10 Atherosclerotic heart disease of native coronary artery without angina pectoris; J44.9 Chronic obstructive pulmonary disease, unspecified; D50.9 Iron deficiency anemia, unspecified; N40.0 Benign prostatic hyperplasia without lower urinary tract symptoms; G89.4 Chronic pain syndrome; M54.5 Low back pain; M19.90 Unspecified osteoarthritis, unspecified site; Z87.891 Personal history of nicotine dependence; N31.9 Neuromuscular dysfunction of bladder, unspecified; Y83.8 Other surgical procedures as the cause of abnormal reaction of the patient, or of later complication, without mention of misadventure at the time of the procedure
CPT/HCPCS: 36415; 71010-TC; 80048-TC; 80061-TC; 80076-TC; 81000-TC; 83690-TC; 83735-TC; 84100-TC; 84443-TC; 85025-TC; 85730-TC; 87040-TC; 87081-TC; 87086-TC; A4606; A6403; J1170; J2185; J2405; J2543; J7030; J7060; Z7610

== ENCOUNTER 2017-04-04 16:05 | Emergency (ER) | payer MEDICAID ==
[~2017-04-04] VITALS: Ht 172.7 cm; Wt 93.0 kg
[~2017-04-04 16:05] MED LIST changes: +ERTA1VIA IJ; +HYDR-552 PO; -LINE600T2 PO; -MERO1VIA3 IV; -MULT-24 PO; +ONDA4TAB5 PO; +PANT40TA2 PO; +VIT1CAPS32 PO; -ZINC220C8 PO; +ZOLP5TAB2 PO
[2017-04-04] MEDS ORDERED: IV NS 0.9% 1,000 ML BAG IV ONE (16:30)
--- NOTE | 2017-04-04 16:30 | NUR ---
PT BIBA FOR POSSIBLE INFECTED COLOSTOMY SITE - RLQ ABD PAIN AND CHILLS X 3 DAYS. PT AAOX3. VSS. BED BOUND. SEEN BY MD FOR EVAL. SAFETY AND COMFORT MEASURES PROVIDED. WILL MONITOR.
[2017-04-04 16:39] LABS: BASOPHILS # (AUTO) 0.1 /CMM (0.0-0.2); BASOPHILS % (AUTO) 1.1 % (0.0-2.0); EOSINOPHILS # (AUTO) 0.1 /CMM (0.0-0.7); EOSINOPHILS % (AUTO) 0.7 % (0.0-6.0); HEMATOCRIT 40 % (39-51); LYMPHOCYTES % (AUTO) 21.5 % (20.0-44.0); MEAN CORPUSCULAR HEMOGLOBIN 26 PG (26.0-33.0); MEAN CORPUSCULAR HGB CONC 33 g/dl (31.0-36.0); MEAN CORPUSCULAR VOLUME 81 fL (80-96); MONOCYTES # (AUTO) 0.6 /CMM (0.1-1.30); MONOCYTES % (AUTO) 6.5 % (2.0-12.0); NEUTROPHILS # (AUTO) 6.3 /CMM (1.8-8.9); NEUTROPHILS % (AUTO) 70.2 % (43.0-81.0); PLATELET COUNT (AUTO) 355 /CMM (150-450); RED BLOOD CELL COUNT(AUTO) 4.91 MIL/uL (4.5-6.0); WHITE BLOOD COUNT (AUTO) 9.1 K/uL (4.3-11.0)
[2017-04-04] MEDS ORDERED: IV SET PRIMARY PUMP SET 1 EA INFUS.SET MC ONE (16:44)
[2017-04-04] MEDS ORDERED: IV NS 0.9% 1,000 ML ONE (16:44)
[2017-04-04 16:48] LABS: CALCIUM, SERUM 8.6 mg/dL (8.5-10.1); CARBON DIOXIDE 21 mmol/L (21-32); CHLORIDE 108 mmol/L (98-107); GLUCOSE 104 mg/dL (74-106); POTASSIUM 3.7 mmol/L (3.5-5.1); SODIUM SERUM 139 mmol/L (136-145); UREA NITROGEN, BLOOD 18 mg/dL (7-18)
[2017-04-04 16:51] LABS: INR 0.98 (0.87-1.13); PROTHROMBIN TIME 10.2 SECS (9.5-12.7)
[2017-04-04 16:55] LABS: APPEARANCE,URINE Clear (CLEAR); BILIRUBIN,URINE Negative (NEGATIVE); BLOOD, URINE Negative Ery/uL (NEGATIVE); COLOR,URINE Yellow (YELLOW); KETONES,URINE Negative (NEGATIVE); LEUKOCYTE ESTERASE ,URINE Negative (NEGATIVE); NITRITE, URINE Negative (NEGATIVE); PH,URINE 5.5 (5.0-8.0); PROTEIN,URINE Trace mg/dl (NEGATIVE); UGLUCOSE Negative (NEGATIVE); UROBILINOGEN,URINE 0.2 EU/dL (0.2)
[2017-04-04 16:55] LABS: ALANINE AMINOTRANSFERASE 19 U/L (12-78); ALBUMIN 3.2 g/dL (3.4-5.0); ALKALINE PHOSPHATASE 190 U/L (46-116); ASPARTATE AMINOTRANSFERASE 14 U/L (15-37); BILIRUBIN,TOTAL 0.2 mg/dL (0.2-1.0); TOTAL PROTEIN, SERUM 8.1 g/dL (6.4-8.2)
[2017-04-04 16:56] LABS: TROPONIN I < 0.017 ng/mL (0.00-0.056)
[2017-04-04] MEDS ORDERED: ASPI81TA2 PO (16:56)
[2017-04-04] MEDS ORDERED: HYDR2TAB35 PO (16:56)
[2017-04-04] MEDS ORDERED: MULT-213 PO (16:56)
[2017-04-04] MEDS ORDERED: IV NS 0.9% 250 ML IV ONE (17:05)
[2017-04-04] MEDS ORDERED: IOHEXOL-300 100 ML VIAL IV ONE (17:05)
[2017-04-04 17:22] LABS: BACTERIA,URINE None seen /HPF (None Seen); RBC,URINE 0-2 /HPF (0-2); SQUAMOUS EPITHELIAL CELL,UR None Seen /HPF (None Seen); WBC,URINE 0-2 /HPF (0-3)
[2017-04-04] MEDS ORDERED: IV SET PRIMARY 1 EA INFUS.SET MC ONE (17:56)
[2017-04-04] MEDS ORDERED: PIPERACILLIN /TAZOBACTAM 3.375 G in IV D5W 50 ML IV ONE (18:00)
--- NOTE | 2017-04-04 18:01 | NUR ---
CALLED [facility] FOR TRANSPORT ETA OF 1899 WAS GIVEN.
[2017-04-04] MEDS ORDERED: HYDROMORPHONE INJ 2 MG/ML DISP.SYRIN IV ONE (18:30)
[2017-04-04] MEDS ORDERED: ONDANSETRON HCL/PF 4 MG/2 ML VIAL IVP ONE (18:30)
[2017-04-04] MEDS ORDERED: HYDROMORPHONE INJ 2 MG/ML DISP.SYRIN ONE (18:31)
[2017-04-04] MEDS ORDERED: ONDANSETRON HCL/PF 4 MG/2 ML VIAL ONE (18:31)
--- NOTE | 2017-04-04 19:23 | NUR ---
REPORT GIVEN TO [facility] FOR TRANSPORT BACK TO [facility].
[2017-04-04 19:27] VITALS: BP 112/64
== END 2017-04-04 19:28 ==
LOC: ER 16:07
DX: L02.211 Cutaneous abscess of abdominal wall (principal); I10 Essential (primary) hypertension; Z88.6 Allergy status to analgesic agent; Z88.8 Allergy status to other drugs, medicaments and biological substances
CPT/HCPCS: 36415; 71010-TC; 80048-TC; 80076-TC; 81000-TC; 83605-TC; 83690-TC; 84484-TC; 85025-TC; 85730-TC; 87040-TC; 87081-TC; 87086-TC; A4606; J1170; J2405; J2543; J7030; J7050; J7060; Q9967; Z7610

== ENCOUNTER 2017-08-10 15:30 | Emergency (ER) | payer MEDICAID ==
[~2017-08-10] VITALS: Ht 172.7 cm; Wt 104.3 kg
[~2017-08-10 15:30] MED LIST changes: +ASPI81TA2 PO; -ERTA1VIA IJ; +HYDR2TAB35 PO; -HYDR2VIA3 IVP; +MULT-213 PO; -ONDA4TAB5 PO; -SENN8.6T6 PO
--- NOTE | 2017-08-10 15:35 | NUR ---
BBPA FROM [facility] FOR [facility]IN AND +DISCHARGE, GREEN COLOR ON INTESTINAL FISTULA. A/OX 4. BREATHING EVEN AND UNLABORED. NO SOB. VITALS STABLE. SAFETY AND COMFORT MEASURES IN PLACE. AWAITING MD ORDERS.
[2017-08-10] MEDS ORDERED: AMOX/CLAVULANATE 875 MG TABLET ONE (16:38)
[2017-08-10] MEDS ORDERED: HYDROCODONE/APAP 10/325MG 1 EA TABLET ONE (16:38)
--- NOTE | 2017-08-10 16:42 | NUR ---
MEDICATED PATIENT PER MD ORDERS.
--- NOTE | 2017-08-10 16:48 | NUR ---
CALLED [facility] FOR TRANSPORT - GIVEN ETA OF 30-45 MINUTES - TRIP #[id number]
[2017-08-10] MEDS ORDERED: HYDROCODONE/APAP 10/325MG 1 EA TABLET PO ONE (17:00)
[2017-08-10] MEDS ORDERED: AMOX/CLAVULANATE 875 MG TABLET PO ONE (17:00)
[2017-08-10 17:17] VITALS: BP 102/62
--- NOTE | 2017-08-10 17:40 | NUR ---
Patient discharged to home in stable condition. Written and verbal after care instructions given. Patient verbalizes understanding of instruction. Addendum: 08/10/17 at 1741 by KARLEE DISCHARGED TO SNF*
== END 2017-08-10 17:40 ==
LOC: ER 15:33
DX: L03.311 Cellulitis of abdominal wall (principal); K63.2 Fistula of intestine; D64.9 Anemia, unspecified; G82.20 Paraplegia, unspecified; G89.29 Other chronic pain; I10 Essential (primary) hypertension; Z79.82 Long term (current) use of aspirin; Z88.6 Allergy status to analgesic agent; Z88.8 Allergy status to other drugs, medicaments and biological substances; Z90.49 Acquired absence of other specified parts of digestive tract; Z98.890 Other specified postprocedural states; Z93.3 Colostomy status
CPT/HCPCS: 99283; A4606; Z7610

== ENCOUNTER 2017-12-26 08:12 | Emergency (ER) | payer MEDICAID ==
[~2017-12-26] VITALS: Ht 172.7 cm; Wt 90.7 kg
[~2017-12-26 08:12] MED LIST changes: +ASPI-1169 PO; -ASPI81TA2 PO; +CRAN1CAP6 PO; -FERR-58 PO; +FERR325T24 PO; -VIT1CAPS32 PO
--- NOTE | 2017-12-26 08:13 | NUR ---
[id number] C/P DIFFUSE ABD PAIN X1 WK, N/V, HEADACHE
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
--- NOTE | 2017-12-26 08:51 | NUR ---
PT TAKEN TO CT
[2017-12-26 08:53] LABS: BASOPHILS % (AUTO) 0.4 % (0.0-2.0); EOSINOPHILS # (AUTO) 0.1 /CMM (0.0-0.7); EOSINOPHILS % (AUTO) 0.5 % (0.0-6.0); HEMATOCRIT 33 % (39-51); HEMOGLOBIN 10.7 g/dL (13.5-17.5); LYMPHOCYTES # (AUTO) 1.6 /CMM (0.8-4.8); LYMPHOCYTES % (AUTO) 14.2 % (20.0-44.0); MEAN CORPUSCULAR HEMOGLOBIN 25 PG (26.0-33.0); MEAN CORPUSCULAR HGB CONC 33 g/dl (31.0-36.0); MEAN CORPUSCULAR VOLUME 77 fL (80-96); MONOCYTES # (AUTO) 0.5 /CMM (0.1-1.30); MONOCYTES % (AUTO) 4.2 % (2.0-12.0); NEUTROPHILS # (AUTO) 9.1 /CMM (1.8-8.9); NEUTROPHILS % (AUTO) 80.7 % (43.0-81.0); PLATELET COUNT (AUTO) 449 /CMM (150-450); RDW COEFFICIENT OF VARIATION 15.2 (11.5-15.0); RED BLOOD CELL COUNT(AUTO) 4.24 MIL/uL (4.5-6.0); WHITE BLOOD COUNT (AUTO) 11.3 K/uL (4.3-11.0)
[2017-12-26] MEDS ORDERED: ACETAMINOPHEN ES 500 MG TABLET PO ONE (09:00)
[2017-12-26 09:13] LABS: CALCIUM, SERUM 8.7 mg/dL (8.5-10.1); CREATININE 0.9 mg/dL (0.6-1.3); POTASSIUM 3.8 mmol/L (3.5-5.1)
[2017-12-26 09:23] LABS: ALBUMIN 2.8 g/dL (3.4-5.0); BILIRUBIN,DIRECT 0.1 mg/dL (0.0-0.2); BILIRUBIN,TOTAL 0.2 mg/dL (0.2-1.0); TOTAL PROTEIN, SERUM 8.5 g/dL (6.4-8.2)
--- NOTE | 2017-12-26 10:11 | NUR ---
Patient discharged to home in stable condition. Written and verbal after care instructions given. Patient verbalizes understanding of instruction.
--- NOTE | 2017-12-26 10:15 | NUR ---
CALLED [facility] 10 MIN, TRIP # [id number]
[2017-12-26 10:20] LABS: APPEARANCE,URINE CLOUDY (CLEAR); BILIRUBIN,URINE NEGATIVE (NEGATIVE); BLOOD, URINE NEGATIVE Ery/uL (NEGATIVE); COLOR,URINE YELLOW (YELLOW); KETONES,URINE NEGATIVE (NEGATIVE); LEUKOCYTE ESTERASE ,URINE 3+ (NEGATIVE); NITRITE, URINE NEGATIVE (NEGATIVE); PROTEIN,URINE NEGATIVE (NEGATIVE); UGLUCOSE NEGATIVE (NEGATIVE); UROBILINOGEN,URINE 0.2 EU/dL (0.2)
--- NOTE | 2017-12-26 10:20 | NUR ---
CALLED [address] [place] [address] AND [facility], SPOKE TO [place] NOTIFIED THAT PT IS COMING BACK.
--- NOTE | 2017-12-26 10:24 | NUR ---
[facility] PICKED UP PT IN STABLE CONDITION
[2017-12-26 10:25] VITALS: BP 125/78
[2017-12-26 10:42] LABS: RBC,URINE 0-2 /HPF (0-2); WBC,URINE TOO NUMEROUS TO COUN /HPF (0-3)
[2017-12-26 10:43] LABS: BACTERIA,URINE Moderate /HPF (None Seen); SQUAMOUS EPITHELIAL CELL,UR Rare /HPF (None Seen)
== END 2017-12-26 10:36 | disposition home or self-care (01) ==
LOC: ER 08:13
DX: R10.84 Generalized abdominal pain (principal); D64.9 Anemia, unspecified; G82.20 Paraplegia, unspecified; G89.29 Other chronic pain; I10 Essential (primary) hypertension; F17.200 Nicotine dependence, unspecified, uncomplicated; Z79.82 Long term (current) use of aspirin; Z88.6 Allergy status to analgesic agent; Z93.3 Colostomy status; Z88.8 Allergy status to other drugs, medicaments and biological substances; Z90.49 Acquired absence of other specified parts of digestive tract; Z90.89 Acquired absence of other organs; Z98.890 Other specified postprocedural states
CPT/HCPCS: 36415; 80048-TC; 80076-TC; 81000-TC; 83690-TC; 85025-TC; 87086-TC; A4606; Z7610

== ENCOUNTER 2019-09-04 21:42 | Inpatient (IN) | payer MEDICAID ==
[~2019-09-04] VITALS: Ht 172.7 cm; Wt 100.2 kg
[~2019-09-04 21:42] MED LIST changes: +HYDR-4384 PO; -HYDR-552 PO
--- NOTE | 2019-09-04 22:03 | NUR ---
PATIENT BIB RA 860 FROM HOME FOR ENTERO FISTULA DRAINAGE W/ PUS 1x WEEK AT LOWER ABDOMEN, SITE IS RED AND PINK. PATIENT IS AAOX4. NO SOB. BREATHING EVENLY AND UNLABORED. CONNECTED TO MONITOR.
[2019-09-04 22:17] LABS: BASOPHILS # (AUTO) 0.2 /CMM (0.0-0.2); BASOPHILS % (AUTO) 1.2 % (0.0-2.0); EOSINOPHILS % (AUTO) 0.8 % (0.0-6.0); HEMATOCRIT 37 % (39-51); HEMOGLOBIN 11.7 g/dL (13.5-17.5); LYMPHOCYTES # (AUTO) 2.6 /CMM (0.8-4.8); LYMPHOCYTES % (AUTO) 20.6 % (20.0-44.0); MEAN CORPUSCULAR HGB CONC 32 g/dl (31.0-36.0); MEAN CORPUSCULAR VOLUME 80 fL (80-96); MONOCYTES # (AUTO) 0.8 /CMM (0.1-1.30); MONOCYTES % (AUTO) 6.3 % (2.0-12.0); NEUTROPHILS # (AUTO) 8.9 /CMM (1.8-8.9); NEUTROPHILS % (AUTO) 71.1 % (43.0-81.0); PLATELET COUNT (AUTO) 437 /CMM (150-450); RED BLOOD CELL COUNT(AUTO) 4.65 MIL/uL (4.5-6.0); WHITE BLOOD COUNT (AUTO) 12.5 K/uL (4.3-11.0)
[2019-09-04] MEDS ORDERED: IV NS 0.9% 250 ML IV ONE (22:24)
[2019-09-04] MEDS ORDERED: HYDROMORPHONE INJ 2 MG/ML DISP.SYRIN ONE (22:24)
[2019-09-04] MEDS ORDERED: IOHEXOL-300 100 ML VIAL IV ONE (22:24)
[2019-09-04] MEDS ORDERED: CT SWABBABLE VALVE TRANS SET 1 EA INFUS.SET MC ONE (22:24)
[2019-09-04] MEDS ORDERED: HYDROMORPHONE INJ 2 MG/ML DISP.SYRIN IV ONE (22:30)
[2019-09-04 22:33] LABS: ALBUMIN 3.5 g/dL (3.4-5.0); BILIRUBIN,TOTAL 0.3 mg/dL (0.2-1.0); CALCIUM, SERUM 9.1 mg/dL (8.5-10.1); CREATININE 1.2 mg/dL (0.6-1.3); POTASSIUM 4.2 mmol/L (3.5-5.1); TOTAL PROTEIN, SERUM 8.4 g/dL (6.4-8.2)
--- NOTE | 2019-09-04 22:43 | NUR ---
PATIENT SENT TO CT W/ CONTRAST
--- NOTE | 2019-09-04 23:33 | NUR ---
PATIENT SLEEPING AT BEDSIDE. EASILY ARROUSABLE W/ VERBAL STIMULATION
--- NOTE | 2019-09-05 00:54 | NUR ---
rn notes" received report from hector benito rn. noted order for zosyn from er md dr mecca white, per hector will administer zosyn iv
--- NOTE | 2019-09-05 00:54 | NUR ---
REPORT GIVEN TO HARPREET JIMENEZ FOR SHERINE.
[2019-09-05] MEDS ORDERED: VANCOMYCIN 1 GM VIAL ONE (00:56)
[2019-09-05] MEDS ORDERED: PIPERACILLIN /TAZOBACTAM 3.375 G VIAL IV ONE (00:56)
[2019-09-05] MEDS ORDERED: BISACODYL SUPP (10 MG) 10 MG/SUPP.RECT SUPP.RECT RC PRN (01:00)
[2019-09-05] MEDS ORDERED: NA PHOS,M-B/NA PHOS,DI-BA 1 EA ENEMA RC PRN (01:00)
[2019-09-05] MEDS ORDERED: MAG HYDROX/AL HYDROX/SIMETH 30 ML UDC PO PRN (01:00)
[2019-09-05] MEDS ORDERED: MAGNESIUM HYDROXIDE 30 ML UDC PO PRN ×2 (01:00)
[2019-09-05] MEDS ORDERED: Z GUARD REMEDY 2 OZ OINT TP PRN (01:00)
[2019-09-05] MEDS ORDERED: PIPERACILLIN /TAZOBACTAM 3.375 G in IV D5W 50 ML IV ONE (01:00)
[2019-09-05] MEDS ORDERED: ACETAMINOPHEN 325 MG TABLET PO PRN (01:00)
[2019-09-05] MEDS ORDERED: IV NS 0.9% 1,000 ML IV ONE (01:00)
[2019-09-05] MEDS ORDERED: CLINDAMYCIN IV RTU IN D5W 900 MG/50 ML PIGGYBACK IV SCH (01:00)
[2019-09-05 01:45] VITALS: BP 103/62
--- NOTE | 2019-09-05 01:45 | NUR ---
ADMISSION NOTES: RECEIVED REPORT FROM CURT VALERO RN.PT BROUGHT TO THE UNIT VIA GURNEY. PT a/o x3 on ra, asking about his iv dilaudid stated er nurses promised that he will get his dilaudid once he came to the unit. pt made aware that there is pain pill order but not iv medication. oriented pt to unit policy and hourly rounding. unable to get the accurate weight at this time, as there's so much blanket and linens were pt were sitting, pt refusing to be clean at this time, unable to be touch, stated he wants his iv dilaudid first. agree to have vs check. refused for skin check at this time. inventory of belongings completed by chica santiago. relayed situation to utilization review rnmelo paul. safety precautions for fall initiated, call light in reach, will continue monitoring pt.
[2019-09-05] MEDS ORDERED: VANCOMYCIN HCL 1 GM in IV D5W 260 ML IV ONE (02:00)
--- NOTE | 2019-09-05 02:03 | NUR ---
RN NOTES: PT DOESN'T WANT TO BE TOUCH UNLESS IV DILAUDID IS GIVEN. INFORMED PT THAT THERE IS AVAILABLE DILAUDID 2MG TABLET, BUT PT STATED IT DOESN'T HELP HIM, ONLY THE INJECTION. PAGED HAIDER PIERCE CHIEF LOCK OPERATOR. AWAITING FOR CALL BACK
--- NOTE | 2019-09-05 02:07 | NUR ---
RN NOTES: RECEIVED CALL FROM MD NET APPLICATIONS DEVELOPER, RELAYED SITUATION, PER MD HE WAS INFORMED ABOUT PT'S BEHAVIOR, CONTINUED ALL HIS HOME MEDS DILAUDID AND NORCO, PER MD NO NEW ORDERS, WHATEVER HE ORDER REMAINS IS. GIVE DILAUDID AND NORCO Q4HRS SCHEDULE.
--- NOTE | 2019-09-05 02:17 | NUR ---
cristino notes: al;ready an hour, pt still c/o 07/26 abdominal pain, claimed pain pill not effective. conductor/brakeman paged. awaiting for call back Addendum: 09/05/19 at 0537 by JORDON LIPSCOMB RN DISREGARD ABOVE DOPCUMETATION, WRONG TIME ENTERED
[2019-09-05] MEDS ORDERED: CLINDAMYCIN 900 MG/6 ML VIAL ONE (02:18)
--- NOTE | 2019-09-05 02:23 | NUR ---
rn notes/copy supervisor: pt requested to speak with copy supervisor. he stated he felt that his rights were violated because he cannot receive iv dilaudid. cristino russell came to speak with the pt, both p[arty agree that pt will take the oral dilaudid tab and norco pill as schedule and in an hour if not effective then will call [facility] md to ask for at least one time dose of iv dilaudid. pt stated only just one time dose and he will be okay.
[2019-09-05] MEDS: HYDROCODONE/APAP 5/325MG 1 EACH TABLET PO SCH ×7 (02:36→21:15)
[2019-09-05] MEDS: HYDROMORPHONE HCL 2 MG TABLET PO SCH ×6 (02:37→21:14)
--- NOTE | 2019-09-05 02:37 | NUR ---
late admin of dilaudid tab and norco: pt finally agree to taking norco and dilaudid pill. pt will try and in an hour if still not effective for managing his pain, will call dr patterson to request for one time dose of dilaudid iv. pt doesnt want to be touch or clean/assess at this time unless his pain is well manage.
--- NOTE | 2019-09-05 02:59 | NUR ---
rn notes/cleocin iv: received from cristino batista at 0230am. unable to scan barcode. med override by cristino russell, myriam order, new pt. contacted pharmacy regarding rate, as it doesn't show any rate in the order, per [employer]i mobile sales consultant pharm, to run in 30mins, 100ml/hr, 50ml vtbi. 5 medication rights verified with another rn. administer meds at this time.
--- NOTE | 2019-09-05 03:17 | NUR ---
RN NOTES: ALREADY AN HOUR, PT STILL C/O 10/10 ABDOMINAL PAIN, REQUESTING FOR IV DILAUDID. PAGED ORCHARD SPRAYER
--- NOTE | 2019-09-05 04:02 | NUR ---
RN NOTES: RECEIVED CALL BACK FROM DR GARCIA, RELAYED SITUATION, PT APPEARS TO BE IN SO MUCH PAIN, SPECIALLY WHEN HAVING MUSCLE TENSION ON THE ABDOMINAL AREA, SKIN APPEAR SORE AND PAINFUL, WITH PUSS DRAINING OUT FROM THE WOUND. NOTIFIED MD ABOUT PT'S SPOKED WITH RN DAYLIN, AND PT REQUESTING FOR AT LEAST ONE TIME DOSE OF DILAUDID IV. PER MD, PT ALREADY ON 2MG TAB AND NORCO 5/325M MG, PER MD PT'S ALREADY TAKING MORE THAN WHAT HE RECEIVED ON IV PAIN MEDS. PER MD, NO ORDERS FOR IV MEDS. STICK WITH PILL PAIN MEDS Q4HRS SCHEDULED.
--- NOTE | 2019-09-05 04:25 | NUR ---
rn notes: informed pt about what the doctor explained, pt upset, informed about his pain medication due at 0500am (dilaudid pill and norco), asked if okay to clean him up at this time may be could help relieve discomfort her's feeling , but pt refused, also offered if we can take photos of skin issues in foot sacral and abdomen but pt refused at this time. pt really upset with md's decision.
[2019-09-05 05:23] VITALS: BP 111/64
--- NOTE | 2019-09-05 05:29 | NUR ---
rn notes: offered again to be clean, reposition, body check and take photos of skin issues, according to pt, he's tired and its been a long night, he just want to take his pain pill and sleep. do everything later in the morning. education provided to pt, but pt appears to be really tired and been upset about md's decision concerning his pain. will respect pt's decision at this time notified internet security specialist beverly.
--- NOTE | 2019-09-05 06:52 | NUR ---
END OF SHIFT SUMMARY: PT RESTING IN BED, DUE MEDS ADMINISTERED SCHEDULED. IV ACCESS REMAINS PATENT AND FLUSHING WELL, INFUSING WITH IVF ORDERED. NO S/S OF IV INFILTRATION NOTED. REFUSED BED BATH, REPOSITIONING,SKIN CHECK, WOUND CARE AND PHOTOS FOR DOCUMENTATION. QUARRY EQUIPMENT OPERATORBARBARA PARRA MD CEMENT RAILROAD CAR LOADER ALL MADE AWARE. VS REMAINS STABLE, NEEDS ATTENDED. POSSIBLE SURGICAL CONSULT?, WOUND CARE CONSULT OBTAINED, AWAITING DELIVERY OF KCI MATTRESS. SAFETY PRECAUTIONS FOR FALL REMAINS ENGAGED, CALL LIGHT IN REACH, WILL ENDORSE TO DAY RN FOR CONTINUITY OF CARE.
--- NOTE | 2019-09-05 07:21 | NUR ---
RN OPENING NOTE PT WAS RECEIVED IN BED AT LOWEST AND LOCKED POSITION WITH SIDE RAILS UP X2, A/O X4 BREATHING EVEN AND UNLABORED WITH NO CURRENT S/S OF ANY PAIN OR DISTRESS NOTED AT THIS TIME, INFORMED BY NIGHT RN THAT PT REFUSED SKIN CHECK, BATH, REPOSITIONING, AND WOUND CARE AND PHOTOS. SAFETY PRECAUTIONS IN PLACE, CALL LIGHT IN REACH, WILL MONITOR ACCORDINGLY
[2019-09-05 08:00] VITALS: BP 109/61
[2019-09-05] MEDS ORDERED: CEPH-570 PO (08:53)
[2019-09-05] MEDS ORDERED: PROT946L PO (08:53)
[2019-09-05] MEDS ORDERED: CALC-261 PO (08:53)
[2019-09-05] MEDS ORDERED: BACL10TA PO (08:53)
[2019-09-05] MEDS ORDERED: HYDR-4354 PO ×2 (08:53)
[2019-09-05] MEDS ORDERED: GABA800T11 PO (08:53)
[2019-09-05] MEDS ORDERED: LIDO120C7 TP (08:53)
[2019-09-05] MEDS ORDERED: ASPIRIN 81 MG TAB.CHEW PO SCH (09:00)
[2019-09-05] MEDS ORDERED: Medication Not On Formulary EA (Vit C/Vitamin E Acetate/Cranb (Cranberry Concentrate Sof PO SCH (09:00)
[2019-09-05] MEDS: PANTOPRAZOLE 40 MG TABLET.DR PO SCH (09:08)
[2019-09-05] MEDS: BACLOFEN (10 MG) 10 MG TABLET PO SCH ×4 (09:08→21:14)
[2019-09-05] MEDS: FERROUS SULFATE (325 MG) 325 MG/TAB TABLET PO SCH (09:09)
[2019-09-05] MEDS: MULTIVIT W/MINERALS 1 TAB TABLET PO SCH (09:09)
[2019-09-05] MEDS: ASCORBIC ACID 500 MG TABLET PO SCH (09:09)
--- NOTE | 2019-09-05 09:20 | NUR ---
RN NOTE OFFERED TO CLEAN PT AND TO ASSESS AND DRESS HIS WOUND BUT PT REFUSED STATING HE WANTS TO TALK TO THE DOCTOR AND WOUND CARE NURSE FIRST. INFORMED AND EDUCATED ABOUT WHY HE SHOULD LET ME PREFORM WOUND CARE BUT PT REFUSED.
--- NOTE | 2019-09-05 10:25 | NUR ---
RN NOTE DEMARIO HERNANDEZ CAME TO ASSESS PT WOUNDS, HE ALLOWED ABDOMINAL WOUNDS TO BE ASSESSED BUT REFUSED TO TURN AND SHOW HIS BACK/SACRAL WOUNDS. HE WAS ALSO INFORMED THAT WE NEEDED TO GET A KCI MATTRESS UNDER HIM IN ORDER TO PREVENT FURTHER WORSENING OF SACRAL WOUNDS BUT HE REFUSED.
[2019-09-05] MEDS: CLINDAMYCIN 900 MG in IV D5W 50 ML IV SCH ×2 (10:54→21:13)
[2019-09-05] MEDS ORDERED: HYDROMORPHONE 1 MG/1 ML DISP.SYRIN IV PRN (11:30)
[2019-09-05 16:00] VITALS: BP 103/65
--- NOTE | 2019-09-05 17:14 | NUR ---
RN NOTE PT ALLOWED US AT THIS TIME TO GIVE HIM BATH, KCI MATTRESS PLACED UNDER HIM, AND PHOTOS OF SACRUM AND ABDOMEN WERE TAKEN. PT DID NOT WANT PHOTO OF RIGHT FOOT TO BE TAKEN SINCE IT WAS DRESSED BY PODIATRY. WILL CONTINUE TO MONITOR
[2019-09-05] MEDS ORDERED: ZOLPIDEM TARTRATE 5 MG TABLET PO SCH (18:00)
--- NOTE | 2019-09-05 18:34 | NUR ---
RN OPENING NOTE PT IN BED AT LOWEST AND LOCKED POSITION WITH SIDE RAILS UP X2, A/O X4 BREATHING EVEN AND UNLABORED WITH NO S/S OF ANY PAIN OR DISTRESS, IV IS PATENT AND INTACT, ABLE TO TAKE PHOTOS OF PT ABDOMEN AND SACRUM BUT REFUSED PHOTO OF FOOT, BED BATH GIVEN AND KCI MATTRESS PLACED, SAFETY PRECAUTIONS IN PLACE, CALL LIGHT IN REACH, ALL NEEDS ATTENDED TO THROUGHPUT SHIFT, WILL ENDORSE TO NIGHT RN FOR SHERINE.
--- NOTE | 2019-09-05 19:45 | NUR ---
MS RN OPENING NOTES RECEIVED PATIENT FROM MORNING SHIFT, ALERT AND ORIENTED X 3. VERBALLY RESPONSIVE MACEDONIAN SPEAKING AND ABLE TO FOLLOW DIRECTIONS. BREATHING REGULAR AND UNLABORED ON ROOM AIR. LEFT FOREARM G20 IV LINE INTACT AND PATENT, FLUSHING WELL WITH NO BLEEDING OR S/S OF INFECTION/INFILTRATION NOTED. NO COMPLAINTS OF PAIN/DISCOMFORT REPORTED OF THE TIME. BODY ASSESSMENTS DONE, SEEN WITH MULTIPLE SKIN ISSUES ESPECIALLY ON THE ABDOMINAL AREA. CALL LIGHT IN REACH. BED LOW AND LOCKED ON SEMI FOWLERS POSITION. WILL CONTINUE TO MONITOR.
[2019-09-05 20:00] VITALS: BP 102/47
[2019-09-05] MEDS: TAMSULOSIN 0.4 MG CAP.SR.24H PO SCH (21:14)
--- NOTE | 2019-09-05 21:30 | NUR ---
MS RN NOTES ROUTINE DILAUDID AND NORCO GIVEN BY MOUTH. VITAL SIGN WNL BP 109/75 HR 68. WILL CONTINUE TO MONITOR.
[2019-09-05 22:00] VITALS: BP 102/47
[2019-09-06] MEDS: HYDROMORPHONE HCL 2 MG TABLET PO SCH ×6 (00:32→20:48)
[2019-09-06] MEDS: HYDROCODONE/APAP 5/325MG 1 EACH TABLET PO SCH ×7 (00:33→20:48)
--- NOTE | 2019-09-06 00:45 | NUR ---
MS RN NOTES ROUTINE DILAUDID AND NORCO GIVEN BY MOUTH. VITAL SIGN WNL BP 110/78 HR 65. WILL CONTINUE TO MONITOR.
[2019-09-06] MEDS: CLINDAMYCIN 900 MG in IV D5W 50 ML IV SCH ×3 (04:17→20:51)
--- NOTE | 2019-09-06 06:25 | NUR ---
MS RN CLOSING NOTES PATIENT IN BED, ALERT AND ORIENTED X 3. VERBALLY RESPONSIVE AND ABLE TO FOLLOW DIRECTIONS. BREATHING REGULAR AND UNLABORED ON ROOM AIR. LEFT FOREARM G20 IV LINE INTACT AND PATENT, FLUSHING WELL WITH NO BLEEDING OR S/S OF INFECTION/INFILTRATION NOTED. NO COMPLAINTS OF PAIN/DISCOMFORT REPORTED OF THE TIME. COLOSTOMY BAG CHANGED, WOUND TREATMENTS PROVIDED. PHOTO OF RIGHT FOOT ATTACHED TO CHART. BED LOW AND LOCKED ON SEMI FOWLERS POSITION. WILL ENDORSE TO MORNING SHIFT FOR SHERINE.
[2019-09-06 06:41] LABS: BASOPHILS # (AUTO) 0.1 /CMM (0.0-0.2); BASOPHILS % (AUTO) 0.8 % (0.0-2.0); EOSINOPHILS % (AUTO) 3.2 % (0.0-6.0); HEMATOCRIT 34 % (39-51); HEMOGLOBIN 10.8 g/dL (13.5-17.5); LYMPHOCYTES # (AUTO) 2.2 /CMM (0.8-4.8); LYMPHOCYTES % (AUTO) 26.2 % (20.0-44.0); MEAN CORPUSCULAR HGB CONC 32 g/dl (31.0-36.0); MEAN CORPUSCULAR VOLUME 80 fL (80-96); MONOCYTES # (AUTO) 0.6 /CMM (0.1-1.30); MONOCYTES % (AUTO) 6.8 % (2.0-12.0); NEUTROPHILS # (AUTO) 5.4 /CMM (1.8-8.9); PLATELET COUNT (AUTO) 331 /CMM (150-450); RED BLOOD CELL COUNT(AUTO) 4.24 MIL/uL (4.5-6.0); WHITE BLOOD COUNT (AUTO) 8.6 K/uL (4.3-11.0)
--- NOTE | 2019-09-06 07:30 | NUR ---
ms rn received patient awake,alert,oriented x4,not in any form of distress, respirations even and unlabored,no sob noted,noted to have a leacking colostomy, patient is upset about it.
[2019-09-06 07:40] LABS: CALCIUM, SERUM 8.3 mg/dL (8.5-10.1); CREATININE 0.9 mg/dL (0.6-1.3); MAGNESIUM 1.8 mg/dL (1.8-2.4); PHOSPHORUS 3.3 mg/dL (2.5-4.9)
[2019-09-06 07:58] VITALS: BP 97/54
--- NOTE | 2019-09-06 08:20 | NUR ---
ms rn due meds given tolerated well, change the colostomy at this time, still leaking.
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
[2019-09-06] MEDS: MULTIVIT W/MINERALS 1 TAB TABLET PO SCH (08:53)
[2019-09-06] MEDS: ASCORBIC ACID 500 MG TABLET PO SCH (08:53)
[2019-09-06] MEDS: FERROUS SULFATE (325 MG) 325 MG/TAB TABLET PO SCH (08:53)
[2019-09-06] MEDS: BACLOFEN (10 MG) 10 MG TABLET PO SCH ×4 (08:54→20:47)
[2019-09-06] MEDS: PANTOPRAZOLE 40 MG TABLET.DR PO SCH (08:56)
[2019-09-06] MEDS: THERAHONEY GEL 1.5 OZ TUBE TP SCH (09:00)
--- NOTE | 2019-09-06 09:20 | NUR ---
ms rn whole colostomy change again for the third time, this time,patient is so verbally abusive.
--- NOTE | 2019-09-06 09:45 | NUR ---
ms rn patient is so nasty, this time verbalizing, do you hear me? are you deaf? cannot tolerate it anymore, charge nurse made aware and switch assignment w/ louis. i would rathere have 2 admissions at this time.
--- NOTE | 2019-09-06 10:00 | NUR ---
ms rn needs to change patient, report given to Carlos gregg.
--- NOTE | 2019-09-06 10:05 | NUR ---
WOUND CARE CONSULT WOUND CARE RECEIVED CONSULT FOR ABDOMINAL CELLULITIS, SACRAL DECUBTUS ULCER AND RIGHT FOOT WOUND. PATIENT INITIALLY WAS REFUSING ALL CARE AND EXAMINATIONS BY NURSING, WOUND CARE AND WOUND CARE SURGEONS. PATIENT WOULD NOT ALLOW NURSING TO PHOTOGRAPH ANY OF HIS WOUNDS, AND WOULD NOT ALLOW NURSING TO DO ASSESSMENT OF ANY OF HIS SKIN ISSUES. MEDICAL RECORD WAS REVIEWED BY COLD ROLL CATCHER AND NOTED THAT ALL PRESSURE ULCER PREVENTION MEASURES WERE NOTED TO BE IN PLACE. PATIENT DEX AT 11. WOUND CARE WILL DEFER CONSULT AND ALL TREATMENT PLANS TO PLASTIC SURGICAL TEAM AND DPM DR MOSQUERA IF PATIENT ALLOWS THEM TO PARTICIPATE IN HIS CARE. WOUND CARE WILL SEE PRN.
--- NOTE | 2019-09-06 11:13 | NUR ---
MS RN NOTES REPORT RECEIVED FROM PUJA JIMENEZ. PATIENT RECEIVED RESTING INSIDE ROOM. AWAKE, ALERT AND ORIENTED X 4, NO ACUTE DISTRESS. NO CHANGES IN LOC NOTED. COLOSTOMY BAG IN PLACE. SAFETY PRECAUTIONS IN PLACE. WILL CONTINUE TO MONITOR. BED LOCKED AND IN LOW POSITION. BILATERAL UPPER SIDE RAILS UP AND LOCKED. CALL LIGHT WITHIN EASY REACH
[2019-09-06] MEDS: HYDROMORPHONE 1 MG/1 ML DISP.SYRIN IV PRN (11:37)
[2019-09-06] MEDS: HYDROGEL DRESSING 90 GM TUBE TP SCH (12:30)
--- NOTE | 2019-09-06 12:51 | NUR ---
MS RN NOTES COLOSTOMY BAG NOTED LEAKING, OFFERED TO BE REPLACED BUT PATIENT NOT RESPONDING, NOT LISTENING TO LICENSED STAFF. RISKS AND BENEFITS EXPLAINED BUT TO NO AVAIL. PATIENT STRONGLY REFUSED, VERBALIZED HE WILL DO HIS OWN THING AND DID NOT WANT NURSING STAFF TO REPLACE COLOSTOMY BAG NOR COVER SITE. CHARGE NURSE DORINA MADE AWARE. WILL CONTINUE TO MONITOR
--- NOTE | 2019-09-06 13:34 | NUR ---
MS RN NOTES CAME TO SEE PATIENT AGAIN AND OFFERED COLOSTOMY BAG CHANGED BUT PATIENT REFUSED STRONGLY, ALSO COMPLAINING THAT ROOM IS HOT AND WANTS THE AC ON, VERBALIZING THAT THE HEAT MAKES HIM ANXIOUS. AC TURNED ON TO COOL SETTING. PATIENT VERBALIZED, "GET OUT OF MY FACE! I DONT WANT ANYTHING FROM YOU! ARE YOU DEAF?! GET YOUR EARS CHECKED!". CHARGE NURSE MADE AWARE. WILL CONTINUE TO MONITOR
--- NOTE | 2019-09-06 13:47 | NUR ---
MS RN NOTES PATIENT COMPLAINING THAT ROOM IS TOO COLD AND THAT THE COLD MAKES HIS TOES TINGLE. EXPLAINED TO PATIENT THAT HE REQUESTED AC TO BE ON HE WAS STATING THAT THE HEAT MAKES HIM ANXIOUS. PATIENT GOT ANGRY AND STATED, "YOURE PUTTING WORDS INTO MY MIND! CALL THE INDUSTRIAL NURSE! GET OUT OF MY FACE!". AC SET TO WARMER SETTING. CHARGE NURSE AWARE. WILL CONTINUE TO MONITOR
--- NOTE | 2019-09-06 14:21 | NUR ---
MS RN NOTES PATIENT WITH ORDER TO OBTAIN CONSENT FOR SERIAL WOUND DEBRIDEMENT. PATIENT DOES NOT LISTEN TO STAFF MEMBERS, NURSING STAFF. PATIENT MAKING SIDE COMMENTS WITH NEGATIVE STATEMENTS REGARDING NURSING STAFF. UNABLE TO OBTAIN INFORMED CONSENT AT THIS TIME. DEMARIO CARRILLO PRESENT AT UNIT AND MADE AWARE. WILL CONTINUE TO MONITOR
--- NOTE | 2019-09-06 15:37 | NUR ---
MS RN NOTES [employer] ACC[employer]S PAYABLE ASSOCIATE BROUGHT PATIENT'S STOMAHESIVE AND COLOSTOMY BAGS TO UNIT. GIVEN TO PATIENT. PATIENT DOES NOT WANT NURSING STAFF TO CHANGE HIS COLOSTOMY BAG AND WANTS TO DO IT HIMSELF. RISKS AND BENEFITS EXPLAINED BUT TO NO AVAIL. PATIENT STRONGLY INSISTED THAT HE DOES THE COLOSTOMY BAG PLACEMENT HIMSELF. WILL CONTINUE TO MONITOR
[2019-09-06 15:55] VITALS: BP 115/62
--- NOTE | 2019-09-06 16:10 | NUR ---
MS RN NOTES PATIENT REFUSED WOUND CARE. REFUSES TO MAKE CONVERSATION AND MAKES SIDE COMMENTS REGARDING NURSING STAFF. RISKS AND BENEFITS EXPLAINED BUT PATIENT DENIES TO RESPOND. PATIENT WOULD JUST CONTINUE TO DO HIS OWN THING WHILE SIDE COMMENTING WITH NEGATIVE STATEMENTS REGARDING NURSING STAFF. CHARGE NURSE AWARE. WILL CONTINUE TO MONITOR
--- NOTE | 2019-09-06 18:27 | NUR ---
MS RN NOTES PATIENT RESTING INSIDE ROOM. NO ACUTE DISTRESS. CONTINUES TO REFUSE NURSING CARE. PATIENT NOT LISTENING TO EXPLANATION OF RISKS AND BENEFITS. PATIENT PROVIDED WITH CALM, SAFE, HAZARD-FREE ENVIRONMENT. WILL ENDORSE TO INCOMING SHIFT FOR SHERINE. CALL LIGHT WITHIN EASY REACH
[2019-09-06 20:09] VITALS: BP 140/68
[2019-09-06] MEDS: TAMSULOSIN 0.4 MG CAP.SR.24H PO SCH (21:31)
[2019-09-06] MEDS: ZOLPIDEM TARTRATE 5 MG TABLET PO SCH (22:00)
[2019-09-07] MEDS: HYDROMORPHONE HCL 2 MG TABLET PO SCH ×3 (00:51→09:31)
[2019-09-07] MEDS: HYDROCODONE/APAP 5/325MG 1 EACH TABLET PO SCH ×7 (00:52→21:45)
[2019-09-07] MEDS: ONDANSETRON HCL/PF 4 MG/2 ML VIAL IVP PRN (04:10)
[2019-09-07] MEDS: CLINDAMYCIN 900 MG in IV D5W 50 ML IV SCH ×3 (05:07→21:14)
--- NOTE | 2019-09-07 06:08 | NUR ---
MS RN NOTES AWAKE & RESPONSIVE. NOT IN ANY DISTRESS. NO SOB NOTED. DENIES ANY PAIN OR DISCOMFORT AT THIS TIME. WITH IV-HL PATENT & INTACT. AM CARE DONE. MONITORED ACCORDINGLY. CALL LIGHT WITHIN REACH. BED IN LOWEST POSITION. SR UP X 2 FOR SAFETY. WILL ENDORSE TO NEXT SHIFT.
--- NOTE | 2019-09-07 07:37 | NUR ---
RN MS OPENING NOTES Patient received on room air, no sob noted, remains a/o x4 and denies pain at this time. Patient is comfortable in his bed. remains with LFA 20 gauge. Patient stated that he is to do colostomy care. Bed at the lowest setting, call light within reach, side rails up x2
[2019-09-07 08:00] VITALS: BP 127/67
[2019-09-07] MEDS: ASCORBIC ACID 500 MG TABLET PO SCH (09:32)
[2019-09-07] MEDS: FERROUS SULFATE (325 MG) 325 MG/TAB TABLET PO SCH (09:32)
[2019-09-07] MEDS: PANTOPRAZOLE 40 MG TABLET.DR PO SCH (09:32)
[2019-09-07] MEDS: MULTIVIT W/MINERALS 1 TAB TABLET PO SCH (09:32)
[2019-09-07] MEDS: BACLOFEN (10 MG) 10 MG TABLET PO SCH ×4 (09:32→21:14)
[2019-09-07] MEDS: THERAHONEY GEL 1.5 OZ TUBE TP SCH (09:37)
[2019-09-07] MEDS: HYDROGEL DRESSING 90 GM TUBE TP SCH (09:37)
[2019-09-07] MEDS: HYDROMORPHONE 1 MG/1 ML DISP.SYRIN IV PRN ×4 (10:59→21:13)
[2019-09-07 16:00] VITALS: BP 133/89
--- NOTE | 2019-09-07 18:32 | NUR ---
RN CLOSING NOTES Patient remains on room air, no sob noted, patient denies pain at this time. Patient is the one to change his colostomy bag. L FA 20 gauge SL. Awaiting for urine sample from patient, patient has collection cup within reach. Bed at the lowest setting, call light within reach, side rails up x2. Will give report to NOC RN for SHERINE bedside.
--- NOTE | 2019-09-07 19:15 | NUR ---
MS RN NOTES RECEIVED PT IN BED AWAKE AND ABLE TO MAKE NEEDS KNOWN. PT A/O X3. RESPIRATIONS EVEN AND UNLABORED WITH NO S/S OF ACUTE DISTRESS OR SOB NOTED. NO COMPLAINTS OF PAIN AT THIS TIME. PT NOTED WITH COLOSTOMY BAG. PT WITH LFA 20G PATENT AND INTACT AND SL. SAFETY MEASURES IN PLACE WITH BED IN LOWEST LOCKED POSITION WITH SIDE RAILS UPX2. CALL LIGHT WITHIN REACH. WILL CONTINUE TO MONITOR.
[2019-09-07 20:00] VITALS: BP 138/75
[2019-09-07] MEDS: TAMSULOSIN 0.4 MG CAP.SR.24H PO SCH (21:14)
[2019-09-07] MEDS: ZOLPIDEM TARTRATE 5 MG TABLET PO SCH (22:30)
[2019-09-08] MEDS: HYDROCODONE/APAP 5/325MG 1 EACH TABLET PO SCH ×9 (01:00→22:08)
[2019-09-08 03:47] LABS: APPEARANCE,URINE SL CLOUDY (CLEAR); BILIRUBIN,URINE NEGATIVE (NEGATIVE); BLOOD, URINE TRACE Ery/uL (NEGATIVE); COLOR,URINE YELLOW (YELLOW); KETONES,URINE NEGATIVE (NEGATIVE); LEUKOCYTE ESTERASE ,URINE MODERATE (NEGATIVE); NITRITE, URINE NEGATIVE (NEGATIVE); PROTEIN,URINE TRACE mg/dl (NEGATIVE); UGLUCOSE NEGATIVE (NEGATIVE); UROBILINOGEN,URINE 0.2 EU/dL (0.2)
[2019-09-08 03:55] LABS: BACTERIA,URINE Many /HPF (None Seen); SQUAMOUS EPITHELIAL CELL,UR Moderate /HPF (None Seen); WBC,URINE TOO NUMEROUS TO COUN /HPF (0-3)
[2019-09-08] MEDS: CLINDAMYCIN 900 MG in IV D5W 50 ML IV SCH ×3 (05:14→20:59)
--- NOTE | 2019-09-08 07:37 | NUR ---
MS RN NOTES PT IN BED AWAKE AND ABLE TO MAKE NEEDS KNOWN. PT A/O X3. RESPIRATIONS EVEN AND UNLABORED WITH NO S/S OF ACUTE DISTRESS OR SOB NOTED THROUGHOUT SHIFT. NO COMPLAINTS OF PAIN AT THIS TIME. PT KEPT CLEAN, DRY, AND COMFORTABLE. PT NOTED WITH COLOSTOMY BAG. PT WITH LFA 20G PATENT AND INTACT AND SL. SAFETY MEASURES IN PLACE WITH BED IN LOWEST LOCKED POSITION WITH SIDE RAILS UPX2. CALL LIGHT WITHIN REACH. WILL ENDORSE TO ONCOMING NURSE FOR SHERINE.
--- NOTE | 2019-09-08 07:59 | NUR ---
RN OPENING NOTES Patient received on room air, no sob noted, patient denies pain at this time and is lying down comfortably in his bed. Patient remains a/o x3 and stated that he wants to do wound care for his ostomies on his own. Bed at the lowest setting, call light within reach, siderails up x2.
[2019-09-08 08:00] VITALS: BP 103/77
[2019-09-08] MEDS: MULTIVIT W/MINERALS 1 TAB TABLET PO SCH (08:41)
[2019-09-08] MEDS: ASCORBIC ACID 500 MG TABLET PO SCH (08:41)
[2019-09-08] MEDS: FERROUS SULFATE (325 MG) 325 MG/TAB TABLET PO SCH (08:41)
[2019-09-08] MEDS: PANTOPRAZOLE 40 MG TABLET.DR PO SCH (08:42)
[2019-09-08] MEDS: BACLOFEN (10 MG) 10 MG TABLET PO SCH ×4 (08:42→20:43)
[2019-09-08] MEDS: HYDROGEL DRESSING 90 GM TUBE TP SCH (08:42)
[2019-09-08] MEDS: THERAHONEY GEL 1.5 OZ TUBE TP SCH (08:43)
[2019-09-08] MEDS: HYDROMORPHONE 1 MG/1 ML DISP.SYRIN IV PRN ×4 (11:16→20:54)
[2019-09-08 16:00] VITALS: BP 112/65
--- NOTE | 2019-09-08 18:22 | NUR ---
RN NOTES CLOSING Patient remains on room air, no sob noted, patient states that pain is under control at this time. Patient remains a/o x3, with LFA 20 gauge SL. Patients ostomies care done by self. Patient insists. Bed at the lowest setting, call light within reach, side rails up x2. Will give NOC RN for SHERINE bedside.
--- NOTE | 2019-09-08 19:50 | NUR ---
RN NOTES RECEIVED PATIENT AWAKE IN BED, ALERT, ORIENTED X4, DENIES ANY PAIN WITH SLIGHT DISCOMFORT AT THIS TIME, BREATHING EVEN AND UNLABORED, PATIENT USES URINAL, WITH COLOSTOMY AND ILEOSTOMY INTACT AND SECURED. PATIENT INSISTING TO DO HIS OSTOMY CARE BY HIMSELF. ALL NEEDS ATTENDED, SAFETY MEASURES INPLACE, CALL LIGHT WITHIN EASY REACH. WILL CONTINUE TO MONITOR ACCORDINGLY.
[2019-09-08 20:00] VITALS: BP 129/81
[2019-09-08] MEDS: TAMSULOSIN 0.4 MG CAP.SR.24H PO SCH (22:08)
[2019-09-08] MEDS: ZOLPIDEM TARTRATE 5 MG TABLET PO SCH (22:08)
[2019-09-09] MEDS: HYDROCODONE/APAP 5/325MG 1 EACH TABLET PO SCH ×9 (01:00→22:10)
[2019-09-09] MEDS: CLINDAMYCIN 900 MG in IV D5W 50 ML IV SCH ×3 (05:03→22:10)
--- NOTE | 2019-09-09 06:05 | NUR ---
RN NOTES ALL NEEDS ATTENDED AND MET, ABLE TO REST AND SLEPT AT INTERVALS, PATIENT AWAKE IN BED, ALERT, ORIENTED X4, DENIES ANY PAIN WITH SLIGHT DISCOMFORT AT THIS TIME, BREATHING EVEN AND UNLABORED, PATIENT USES URINAL, WITH COLOSTOMY AND ILEOSTOMY INTACT AND SECURED. PATIENT INSISTING TO DO HIS OSTOMY CARE BY HIMSELF. SAFETY MEASURES INPLACE, CALL LIGHT WITHIN EASY REACH. WILL ENDORSE TO AM NURSE FOR CONTINUITY OF CARE.
--- NOTE | 2019-09-09 07:30 | NUR ---
RN MS NOTES PT IN BED, AWAKE, ALERT AND ORIENTED, WITH COMPLAINT OF ABDOMINAL PAIN, PT ON ROUTINE PAIN MEDS, NOT IN DISTRESS, CALL LIGHT WITHIN REACH.
[2019-09-09 08:00] VITALS: BP 119/70
[2019-09-09] MEDS: BACLOFEN (10 MG) 10 MG TABLET PO SCH ×4 (08:11→22:10)
[2019-09-09] MEDS: MULTIVIT W/MINERALS 1 TAB TABLET PO SCH (08:11)
[2019-09-09] MEDS: PANTOPRAZOLE 40 MG TABLET.DR PO SCH (08:11)
[2019-09-09] MEDS: ASCORBIC ACID 500 MG TABLET PO SCH (08:11)
[2019-09-09] MEDS: FERROUS SULFATE (325 MG) 325 MG/TAB TABLET PO SCH (08:11)
--- NOTE | 2019-09-09 09:00 | NUR ---
RN MS NOTES PT ON ROUTINE NORCO, GIVEN AND ORDERED.
[2019-09-09] MEDS: HYDROMORPHONE 1 MG/1 ML DISP.SYRIN IV PRN ×4 (10:22→22:22)
[2019-09-09] MEDS: HYDROGEL DRESSING 90 GM TUBE TP SCH (10:23)
[2019-09-09] MEDS: THERAHONEY GEL 1.5 OZ TUBE TP SCH (10:24)
--- NOTE | 2019-09-09 12:02 | NUR ---
RN MS NOTES PT IN BED, NO COMPLAINT AT THIS TIME, EATING LUNCH, WOUND TREATMENTS AND DRESSING CHANGE DONE, CALL LIGHT PLACED WITHIN EASY REACH, KEPT WARM AND COMFORTABLE IN BED.
[2019-09-09 16:00] VITALS: BP 121/76
--- NOTE | 2019-09-09 18:16 | NUR ---
RN MS NOTES PT IN BED, AWAKE, ALERT AND ORIENTED, PAIN MEDS GIVEN ORDERED, NOT IN DISTRESS, CALL LIGHT WITHIN REACH, WOUND AND SKIN CARE PROVIDED, ABLE TO TURN AND REPOSITION SELF, ALL NEEDS ATTENDED.
--- NOTE | 2019-09-09 19:20 | NUR ---
RN MS PM OPENING NOTES BEDSIDE REPORT RECIEVED FROM REY JIMENEZ. PT IN BED, AWAKE, ALERT AND ORIENTED, REPORTS PAIN 3/10 TO ABD. NO APPARENT DISTRESS, CALL LIGHT WITHIN REACH, ABLE TO TURN AND REPOSITION SELF, REVIEWED POC TO CONTINUE WOUND CARE AND ANTIBIOTICS TO TREAT CELLULITIS. VERBALIZED UDNERSTANDING. BED DOWN LOCKED ON AIR MATRRESS SRX2 VERBALIZED UNDERSTANDING TO USE CALL LIGHT TO MAKE REQUESTS. CALL LIGHT WITHIN REACH. WILL CONT TO MONITOR.
[2019-09-09 20:00] VITALS: BP 104/61
[2019-09-09] MEDS: ZOLPIDEM TARTRATE 5 MG TABLET PO SCH ×2 (22:09→23:17)
[2019-09-09] MEDS: TAMSULOSIN 0.4 MG CAP.SR.24H PO SCH (22:09)
--- NOTE | 2019-09-09 22:22 | NUR ---
danica held until later d/t patient requesting dilaudid to be administered for for abd pain rated 8/10.
--- NOTE | 2019-09-09 22:35 | NUR ---
PICTURES TAKEN. PATIENT REFUSED PICTURES ON LEFT ABD. PICTURES TAKEN FOR TUESDAY PROTOCOL. PATIENT REFUSED PICTURES TO LEFT ABD. STATES, "I DON'T WANT TO CHANGE THAT DRESSING RIGHT NOW. I HAVE THE DRESSING JUST THE WAY I LIKE IT AND ITS NOT LEAKING I DON'T WANT IT TO LEAK LATER TONIGHT, WE CAN CHANGE IT TOMORROW MORNING."
[2019-09-10] MEDS: HYDROCODONE/APAP 5/325MG 1 EACH TABLET PO SCH ×5 (00:11→12:26)
[2019-09-10] MEDS: ONDANSETRON HCL/PF 4 MG/2 ML VIAL IVP PRN (00:16)
--- NOTE | 2019-09-10 00:16 | NUR ---
ZOFRAN PRN patient c/o feeling nauseas AND REQUESTING ZOFRAN. ZOFRAN ADMINISTERED ORDERED.
[2019-09-10] MEDS: CLINDAMYCIN 900 MG in IV D5W 50 ML IV SCH (04:30)
--- NOTE | 2019-09-10 06:29 | NUR ---
RN MS PM CLOSING NOTES PT IN BED, SEEN WITH EYES CLOSED. IN NO APPARENT DISTRESS, CALL LIGHT WITHIN REACH, BREATHING EVEN AND UNLABORED AT 14. BED DOWN LOCKED ON AIR MATRRESS SRX2 CALL LIGHT WITHIN REACH. WILL CONT TO MONITOR.
--- NOTE | 2019-09-10 07:34 | NUR ---
MS RN OPENING NOTES RECEIVED PATIENT ASLEEP IN BED, EASILY AWAKENS. HOB ELEVATED. A/OX4. CHILEAN SPEAKING, DENIES PAIN OR ANY DISCOMFORTS AT THIS TIME. PT BREATHING REGULAR AND UNLABORED ON ROOM AIR. IV ACCESS ON LEFT FOREARM G#20 IV INTACT AND PATENT, FLUSHING WELL WITH NO BLEEDING OR S/S OF INFILTRATIONS NOTED. PT WITH COLOSTOMY AND ILEOSTOMY INTACT AND SECURED. CALL LIGHT IN REACH. BED IN LOWEST LOCKED POSITION WITH SR-UP X2. WILL CONTINUE TO MONITOR.
[2019-09-10 08:07] VITALS: BP 112/64
[2019-09-10] MEDS: PANTOPRAZOLE 40 MG TABLET.DR PO SCH (08:34)
[2019-09-10] MEDS: FERROUS SULFATE (325 MG) 325 MG/TAB TABLET PO SCH (08:35)
[2019-09-10] MEDS: BACLOFEN (10 MG) 10 MG TABLET PO SCH ×2 (08:35→12:26)
[2019-09-10] MEDS: ASCORBIC ACID 500 MG TABLET PO SCH (08:36)
[2019-09-10] MEDS: MULTIVIT W/MINERALS 1 TAB TABLET PO SCH (08:36)
[2019-09-10] MEDS: HYDROGEL DRESSING 90 GM TUBE TP SCH (08:37)
[2019-09-10] MEDS: THERAHONEY GEL 1.5 OZ TUBE TP SCH (08:37)
[2019-09-10] MEDS: HYDROMORPHONE 1 MG/1 ML DISP.SYRIN IV PRN (09:30)
--- NOTE | 2019-09-10 09:34 | NUR ---
RN NOTES/PAIN MANAGEMENT PT C/O MID ABDOMINAL PAIN WITH SCALE OF 8/10. PRN DILAUDID 1MG IVP ADMINISTERED AT 0930. WILL CONTINUE TO MONITOR AND REASSESS PT.
[2019-09-10 11:10] LABS: BASOPHILS # (AUTO) 0.1 /CMM (0.0-0.2); BASOPHILS % (AUTO) 0.9 % (0.0-2.0); EOSINOPHILS % (AUTO) 2.8 % (0.0-6.0); HEMATOCRIT 37 % (39-51); LYMPHOCYTES # (AUTO) 1.8 /CMM (0.8-4.8); LYMPHOCYTES % (AUTO) 19.6 % (20.0-44.0); MEAN CORPUSCULAR HGB CONC 32 g/dl (31.0-36.0); MEAN CORPUSCULAR VOLUME 78 fL (80-96); MONOCYTES # (AUTO) 0.4 /CMM (0.1-1.30); MONOCYTES % (AUTO) 4.8 % (2.0-12.0); NEUTROPHILS # (AUTO) 6.5 /CMM (1.8-8.9); NEUTROPHILS % (AUTO) 71.9 % (43.0-81.0); PLATELET COUNT (AUTO) 423 /CMM (150-450); RED BLOOD CELL COUNT(AUTO) 4.76 MIL/uL (4.5-6.0)
[2019-09-10 11:17] LABS: CALCIUM, SERUM 8.5 mg/dL (8.5-10.1); MAGNESIUM 1.7 mg/dL (1.8-2.4); POTASSIUM 4.2 mmol/L (3.5-5.1)
[2019-09-10] MEDS ORDERED: CLINDAMYCIN HCL 150 MG CAPSULE PO SCH (12:00)
[2019-09-10] MEDS ORDERED: CLIN150C15 PO (12:43)
--- NOTE | 2019-09-10 13:33 | NUR ---
RN NOTES PT FOR DISCHARGE TO [facility] THIS AFTERNOON. CALLED AND REPORT GIVEN TO NURSE MANAGER CONSUMER INSIGHTS MARY.
--- NOTE | 2019-09-10 14:34 | NUR ---
RN DISCHARGED NOTES PT DISCHARGED TO [facility] IN STABLE CONDITION. A/O X4. ABLE TO MAKE NEEDS KNOWN. V/S TAKEN, WNL AND RECORDED. ALL BELONGINGS ACCOUNTED FOR AND SIGNED FORM. PHOTOS OF SKIN ISSUES TAKEN FROM PREVIOUS SHIFT AND REFUSED TO TAKE PHOTOS OF ABDOMEN DUE TO INTACT DRESSINGS. IV ACCESS AT [facility] REMOVED WITH NO BLEEDING NOTED, DRY DRESSING APPLIED. HEALTH TEACHINGS GIVEN TO PT AND VERBALIZED UNDERSTANDING. PT LEFT UNIT VIA GURNEY AT 1355 ACCOMPANIED BY 2 EMT'S. MD AND CHARGE NURSE AWARE OF DISCHARGE.
[2019-10-28] MEDS ORDERED: MERO500P IV (13:38)
== END 2019-09-10 13:55 | DRG 252 ==
LOC: ER 21:42 → MED 09-05 00:34
PROVIDERS: ADMIT Family Medicine; ATTEND Nurse Practitioner Acute Care
DX: K94.02 Colostomy infection (principal); N17.0 Acute kidney failure with tubular necrosis; K63.2 Fistula of intestine; K65.9 Peritonitis, unspecified; L89.159 Pressure ulcer of sacral region, unspecified stage; G82.20 Paraplegia, unspecified; L02.211 Cutaneous abscess of abdominal wall; L03.311 Cellulitis of abdominal wall; D72.829 Elevated white blood cell count, unspecified; N28.1 Cyst of kidney, acquired; N31.9 Neuromuscular dysfunction of bladder, unspecified; K42.9 Umbilical hernia without obstruction or gangrene; N40.0 Benign prostatic hyperplasia without lower urinary tract symptoms; M54.5 Low back pain; D53.9 Nutritional anemia, unspecified; Z90.5 Acquired absence of kidney; Z87.891 Personal history of nicotine dependence; I10 Essential (primary) hypertension; M19.90 Unspecified osteoarthritis, unspecified site; J44.9 Chronic obstructive pulmonary disease, unspecified; L40.9 Psoriasis, unspecified; F41.9 Anxiety disorder, unspecified; F43.10 Post-traumatic stress disorder, unspecified; E66.01 Morbid (severe) obesity due to excess calories; Z68.33 Body mass index [BMI] 33.0-33.9, adult; I70.25 Atherosclerosis of native arteries of other extremities with ulceration; L98.499 Non-pressure chronic ulcer of skin of other sites with unspecified severity; G89.4 Chronic pain syndrome; F11.20 Opioid dependence, uncomplicated; Z91.19 Patient's noncompliance with other medical treatment and regimen; Y83.9 Surgical procedure, unspecified as the cause of abnormal reaction of the patient, or of later complication, without mention of misadventure at the time of the procedure; Y82.9 Unspecified medical devices associated with adverse incidents
CPT/HCPCS: 36415; 71045-TC; 80048-TC; 80061-TC; 80076-TC; 81000-TC; 83605-TC; 83735-TC; 84100-TC; 85025-TC; 85730-TC; 87040-TC; 87081-TC; 87086-TC; 87186-TC; A6248; A6253; A6403; G0378; J1170; J2405; J2543; J3370; J3490; J7030; J7050; J7060; Q9967

== ENCOUNTER 2019-10-27 04:14 | Inpatient (IN) | payer MEDICAID ==
[~2019-10-27] VITALS: Ht 172.7 cm; Wt 86.2 kg
[~2019-10-27 04:14] MED LIST changes: +ASCO-352 PO; -ASCO500T9 PO; -ASPI-1169 PO; +CALC-261 PO; +CEPH-570 PO; +CLIN150C15 PO; -CRAN1CAP6 PO; +GABA800T11 PO; +HYDR-4354 PO; -HYDR-4384 PO; -HYDR2TAB35 PO; +LIDO120C7 TP; +PROT946L PO; -TAMS-12 PO; -ZOLP5TAB2 PO
--- NOTE | 2019-10-27 04:17 | NUR ---
[id number] FROM [place]. TO ER BED 9, AAOX4. NO RESP DISTRESS NOTED. BR[place]. C/O L FLANK AND GEN ABDOMINAL PIAN X 2 WEEKS WORST TODAY. PT RATES BOTH ABD AND L FLANK PAIN 10/10 WITH SHARP BURNING SENSATION. PT REPORTS THAT HE HAVE 6 ABDOMINAL FISTULA. WAS AT BEDSIDE FOR EVAL. AWAITING FURTHER ORDERS
[2019-10-27] MEDS ORDERED: ONDANSETRON HCL/PF 4 MG/2 ML VIAL ONE (04:25)
[2019-10-27] MEDS ORDERED: MORPHINE SULFATE INJ 4 MG/ML DISP.SYRIN ONE (04:25)
[2019-10-27] MEDS ORDERED: ONDANSETRON HCL/PF 4 MG/2 ML VIAL IV ONE (04:30)
[2019-10-27] MEDS ORDERED: ZOLPIDEM TARTRATE 5 MG TABLET PO PRN (04:30)
[2019-10-27] MEDS ORDERED: IV NS 0.9% 1,000 ML IV PRN (04:30)
[2019-10-27] MEDS ORDERED: ONDANSETRON HCL/PF 4 MG/2 ML VIAL IVP PRN (04:30)
[2019-10-27] MEDS ORDERED: Z GUARD REMEDY 2 OZ OINT TP PRN (04:30)
[2019-10-27] MEDS ORDERED: ACETAMINOPHEN 325 MG TABLET PO PRN (04:30)
[2019-10-27] MEDS ORDERED: MORPHINE SULFATE INJ 2 MG/ML DISP.SYRIN IV ONE (04:30)
[2019-10-27] MEDS ORDERED: MEROPENEM 500 MG in IV NS 0.9% 50 ML IV SCH (05:00)
[2019-10-27 05:01] LABS: BASOPHILS # (AUTO) 0.1 /CMM (0.0-0.2); EOSINOPHILS % (AUTO) 2.8 % (0.0-6.0); HEMATOCRIT 40 % (39-51); HEMOGLOBIN 12.8 g/dL (13.5-17.5); LYMPHOCYTES # (AUTO) 2.5 /CMM (0.8-4.8); LYMPHOCYTES % (AUTO) 19.4 % (20.0-44.0); MEAN CORPUSCULAR HGB CONC 32 g/dl (31.0-36.0); MEAN CORPUSCULAR VOLUME 79 fL (80-96); MONOCYTES # (AUTO) 0.8 /CMM (0.1-1.30); MONOCYTES % (AUTO) 6.6 % (2.0-12.0); NEUTROPHILS # (AUTO) 8.9 /CMM (1.8-8.9); NEUTROPHILS % (AUTO) 70.2 % (43.0-81.0); PLATELET COUNT (AUTO) 387 /CMM (150-450); RED BLOOD CELL COUNT(AUTO) 4.99 MIL/uL (4.5-6.0); WHITE BLOOD COUNT (AUTO) 12.7 K/uL (4.3-11.0)
[2019-10-27 05:04] LABS: CALCIUM, SERUM 8.9 mg/dL (8.5-10.1); CREATININE 0.9 mg/dL (0.6-1.3)
[2019-10-27] MEDS ORDERED: HYDROMORPHONE 1 MG/1 ML DISP.SYRIN ONE (05:36)
[2019-10-27 05:58] LABS: APPEARANCE,URINE TURBID (CLEAR); COLOR,URINE YELLOW (YELLOW)
[2019-10-27 05:59] LABS: PROTEIN,URINE NEGATIVE (NEGATIVE); UGLUCOSE NEGATIVE (NEGATIVE)
[2019-10-27 06:00] LABS: BILIRUBIN,URINE NEGATIVE (NEGATIVE); BLOOD, URINE NEGATIVE Ery/uL (NEGATIVE); KETONES,URINE NEGATIVE (NEGATIVE); LEUKOCYTE ESTERASE ,URINE 3+ (NEGATIVE); NITRITE, URINE NEGATIVE (NEGATIVE); UROBILINOGEN,URINE 0.2 EU/dL (0.2)
[2019-10-27] MEDS ORDERED: HYDROMORPHONE INJ 0.5 MG/0.5 ML SYRINGE IV ONE (06:00)
--- NOTE | 2019-10-27 06:14 | NUR ---
CALLED TO UNIT FOR REPORT. NURSE IS ATTENDING TO ANOTHER PT AT THIS TIME. WILL CALL BACK AGAIN.
--- NOTE | 2019-10-27 06:29 | NUR ---
PT GOING TO 315 INSTEAD OF 309. AWAITING NURSE FOR REPORT.
[2019-10-27 06:31] LABS: BACTERIA,URINE Few /HPF (None Seen); RBC,URINE 0-2 /HPF (0-2); SQUAMOUS EPITHELIAL CELL,UR Few /HPF (None Seen); WBC,URINE TOO NUMEROUS TO COUN /HPF (0-3)
--- NOTE | 2019-10-27 06:32 | NUR ---
REPORT GIVEN TO BARBARA CHIANG FOR SHERINE. TO ROOM 315
--- NOTE | 2019-10-27 06:59 | NUR ---
PT TRANSPORTED TO UNIT ON GURNEY WITH EMT AND RN AT BEDSIDE W/ ACLS PROTOCOL. NAD NOTED DURING TRANSPORT.
--- NOTE | 2019-10-27 07:15 | NUR ---
MS RN ADMITTING NOTE PATIENT ARRIVED BY VIKY. PATIENT IN NO ACUTE DISTRESS. NO SOB NOTED. PATIENT BREATHING IS EVEN AND UNLABORED. PATIENT VITAL SIGNS WNL. SAFETY PRECAUTIONS IN PLACE. SANDRO ACEVES NOTIFIED AND MADE AWARE. PATIENT BED IS LOCKED AND IN LOWEST POSITION. CALL LIGHT WITHIN REACH. WILL CONTINUE TO MONITOR.
[2019-10-27 07:30] VITALS: BP 125/65
--- NOTE | 2019-10-27 07:38 | NUR ---
MS RN NOTE CALLED PHARMACY AND SPOKE WITH JANESSA ABOUT MERREM ADMINISTRATION. PER JANESSA DO NOT GIVE MERREM 0500 DOSE. CONTINUE WITH 0700 MERREM DOSE.
[2019-10-27 08:00] VITALS: BP 125/65
[2019-10-27 08:02] LABS: BILIRUBIN,DIRECT 0.1 mg/dL (0.0-0.2); BILIRUBIN,TOTAL 0.4 mg/dL (0.2-1.0)
[2019-10-27] MEDS: MEROPENEM 500 MG in IV NS 0.9% 100 ML IV SCH ×3 (08:02→21:24)
[2019-10-27] MEDS ORDERED: SENN-18 PO (08:56)
[2019-10-27] MEDS: HYDROCODONE/APAP 5/325MG 1 EACH TABLET PO PRN (10:06)
[2019-10-27] MEDS: MORPHINE SULFATE INJ 2 MG/ML DISP.SYRIN IV PRN ×2 (15:47→21:23)
[2019-10-27 16:00] VITALS: BP 135/70
[2019-10-27] MEDS ORDERED: MAGNESIUM HYDROXIDE 30 ML UDC PO PRN (17:30)
[2019-10-27] MEDS ORDERED: NA PHOS,M-B/NA PHOS,DI-BA 1 EA ENEMA RC PRN (17:30)
[2019-10-27] MEDS ORDERED: BISACODYL SUPP (10 MG) 10 MG/SUPP.RECT SUPP.RECT RC PRN (17:30)
[2019-10-27] MEDS: GABAPENTIN 400 MG CAPSULE PO SCH (17:44)
[2019-10-27] MEDS: CALCIUM CARB 600MG /VIT D 1 EACH TABLET PO SCH (17:44)
--- NOTE | 2019-10-27 18:35 | NUR ---
MS RN CLOSING NOTE PATIENT IN BED RESTING COMFORTABLY. PATIENT IN NO ACUTE DISTRESS. NO SOB NOTED. PATIENT BREATHING IS EVEN AND UNLABORED. PATIENT KEPT CLEAN, DRY, AND COMFORTABLE THROUGHOUT SHIFT. PATIENT OSTOMY BAG CLEAN, PATENT AND INTACT. PATIENT TURNED AND REPOSITIONED. EXTREMITIES OFFLOADED ON PILLOWS. BED ALARM IS ON. SAFETY PRECAUTIONS IN PLACE. PATIENT BED IS LOCKED AND IN LOWEST POSITION. CALL LIGHT WITHIN REACH. WILL ENDORSE CARE TO PM SHIFT FOR SHERINE.
--- NOTE | 2019-10-27 19:21 | NUR ---
CHANGE OF SHIFT REPORT Patient in bed, tolerating RA, appears comfortable in bed, denies pain. FISCAL SPECIALIST reported patient refuses vital signs, education provided. Will retry, maintained safety. Instructed to use call light for assistance, verbalized understanding.
[2019-10-27 21:00] VITALS: BP 122/67
[2019-10-27 21:20] VITALS: BP 122/67
[2019-10-27] MEDS ORDERED: SENNOSIDES 8.6 MG TABLET PO SCH (22:00)
[2019-10-28] MEDS: MORPHINE SULFATE INJ 2 MG/ML DISP.SYRIN IV PRN ×3 (01:03→09:19)
[2019-10-28] MEDS: MEROPENEM 500 MG in IV NS 0.9% 100 ML IV SCH ×2 (05:08→12:37)
--- NOTE | 2019-10-28 06:30 | NUR ---
END OF SHIFT REPORT Patient in bed, stable Oxygen saturation on RA. NPO, IVF infusing, IV antibiotic as scheduled. Abdomen pain managed with PRN Morphine, VSS. Reposition x2 person assist, patient refused turning and reposition at times, education provided. Plan CT Abd/Pelvis with contrast today, patient consented procedure. Fall/skin precaution maintained.
[2019-10-28 06:50] LABS: BASOPHILS # (AUTO) 0.1 /CMM (0.0-0.2); BASOPHILS % (AUTO) 0.7 % (0.0-2.0); EOSINOPHILS % (AUTO) 1.8 % (0.0-6.0); HEMATOCRIT 37 % (39-51); HEMOGLOBIN 11.8 g/dL (13.5-17.5); LYMPHOCYTES # (AUTO) 2.3 /CMM (0.8-4.8); MEAN CORPUSCULAR HGB CONC 32 g/dl (31.0-36.0); MEAN CORPUSCULAR VOLUME 79 fL (80-96); MONOCYTES # (AUTO) 0.6 /CMM (0.1-1.30); MONOCYTES % (AUTO) 6.1 % (2.0-12.0); NEUTROPHILS # (AUTO) 7.3 /CMM (1.8-8.9); NEUTROPHILS % (AUTO) 69.4 % (43.0-81.0); PLATELET COUNT (AUTO) 371 /CMM (150-450); RED BLOOD CELL COUNT(AUTO) 4.65 MIL/uL (4.5-6.0); WHITE BLOOD COUNT (AUTO) 10.5 K/uL (4.3-11.0)
[2019-10-28] MEDS ORDERED: DIATR MEGLU/DIATRIZOATE SODIUM 30 ML BOTTLE (GASTROGRAPHIN) ONE (07:09)
--- NOTE | 2019-10-28 07:21 | NUR ---
MS RN OPENING NOTE RECEIVED PATIENT IN BED SLEEPING COMFORTABLY. PATIENT IN NO ACUTE DISTRESS. NO SOB NOTED. PATIENT BREATHING IS EVEN AND UNLABORED. IV ACCESS PATENT AND INTACT. PATIENT OSTOMY BAG CLEAN, PATENT AND INTACT. BED ALARM IS ON. SAFETY PRECAUTIONS IN PLACE. PATIENT BED IS LOCKED AND IN LOWEST POSITION. CALL LIGHT WITHIN REACH. WILL CONTINUE TO MONITOR.
[2019-10-28 07:23] LABS: CALCIUM, SERUM 8.8 mg/dL (8.5-10.1); CREATININE 0.8 mg/dL (0.6-1.3); MAGNESIUM 1.9 mg/dL (1.8-2.4); PHOSPHORUS 2.9 mg/dL (2.5-4.9); POTASSIUM 3.8 mmol/L (3.5-5.1)
[2019-10-28] MEDS ORDERED: PANTOPRAZOLE 40 MG TABLET.DR PO SCH (07:30)
[2019-10-28 08:00] VITALS: BP 103/49
[2019-10-28] MEDS: BACLOFEN (10 MG) 10 MG TABLET PO SCH ×3 (08:03→16:22)
[2019-10-28] MEDS: GABAPENTIN 400 MG CAPSULE PO SCH ×3 (08:03→16:22)
[2019-10-28] MEDS: CALCIUM CARB 600MG /VIT D 1 EACH TABLET PO SCH (08:03)
--- NOTE | 2019-10-28 08:05 | NUR ---
MS RN NOTE HELD AM 0730 AND 0900 MEDS DUE TO NPO STATUS FOR CT ABDOMEN AND PELVIS WITH ORAL AND IV CONTRAST.
[2019-10-28] MEDS ORDERED: FERROUS SULFATE (325 MG) 325 MG/TAB TABLET PO SCH (09:00)
[2019-10-28] MEDS ORDERED: PROSOURCE / PROSTAT (PYXIS) 30 ML UDC PO SCH (09:00)
[2019-10-28] MEDS ORDERED: MULTIVIT W/MINERALS 1 TAB TABLET PO SCH (09:00)
--- NOTE | 2019-10-28 10:08 | NUR ---
MS RN NOTE PATIENT REFUSING TO REMAIN COMPLIANT WITH ORAL CONTRAST CONSUMPTION BEFORE EXAM. PATIENT IS NOW REFUSING TO DO CT ABDOMEN AND PELVIS WITH IV AND ORAL CONTRAST. EDUCATED PATIENT OF RISKS VS BENEFITS 3X. PATIENT CONTINUED TO REFUSE. DR. MCQUEEN NOTIFIED AND MADE AWARE.
[2019-10-28] MEDS ORDERED: PHENAZOPYRIDINE HCL 200 MG TABLET PO PRN (12:30)
[2019-10-28] MEDS ORDERED: KETOROLAC TROMETHAMINE INJ 30 MG/ML VIAL IM PRN ×2 (12:30)
[2019-10-28] MEDS ORDERED: MERO500P IV (13:38)
--- NOTE | 2019-10-28 15:00 | NUR ---
MS RN NOTE PATIENT REFUSED LAB DRAW FOR BLOOD CULTURE. EDUCATED RISKS VS BENEFITS 3X. PATIENT CONTINUED TO REFUSE. DR. MCQUEEN MADE AWARE.
[2019-10-28 16:00] VITALS: BP 155/71
--- NOTE | 2019-10-28 16:09 | NUR ---
MS RN NOTE PATIENT REFUSING TO BE TURNED AND REPOSITIONED DESPITE EDUCATIONS AND RISKS VS BENEFITS. PATIENT GOT AGITATED AND CONTINUE TO REFUSE. PATIENT REFUSED SKIN ASSESSMENT AND PICTURES.
[2019-10-28] MEDS: HYDROCODONE/APAP 5/325MG 1 EACH TABLET PO PRN (16:22)
--- NOTE | 2019-10-28 19:20 | NUR ---
MS SAVINGS TELLER NOTE PATIENT MEDICALLY CLEARED FOR DISCHARGE. PATIENT IN NO ACUTE DISTRESS. NO SOB NOTED. PATIENT BREATHING IS EVEN AND UNLABORED. PATIENT VITAL SIGNS WNL. PATIENT IV PATENT AND INTACT. ID BAND REMOVED. PATIENT KEPT CLEAN AND DRY THROUGHOUT SHIFT. DC INSTRUCTIONS PROVIDED. PATIENT VERBALIZED UNDERSTANDING. PATIENT REFUSED SKIN ASSESSMENT. EDUCATED PATIENT ON RISK VS BENEFITS. PATIENT CONTINUED TO REFUSE. PATIENT OSTOMY BAG CLEAN AND INTACT. PATIENT TURNED AND REPOSITIONED MUCH PATIENT WOULD ALLOW AND EXTREMITIES OFFLOADED ON PILLOWS. PATIENT SIGNED BELONGINGS LIST AND IN CHART. PATIENT HAS ALL BELONGINGS WITH HIM. REPORT GIVEN TO HUSSEIN AT [facility]. PATIENT GOING BY AMBULANCE BACK TO [facility]. MD AWARE OF DISCHARGE.
== END 2019-10-28 19:24 | DRG 463 ==
LOC: ER 04:16 → MED 06:21
PROVIDERS: ADMIT Student in an Organized Health Care Education/Training Program; ATTEND Student in an Organized Health Care Education/Training Program
DX: N39.0 Urinary tract infection, site not specified (principal); K63.2 Fistula of intestine; E87.2 Acidosis; G82.20 Paraplegia, unspecified; E66.01 Morbid (severe) obesity due to excess calories; F11.20 Opioid dependence, uncomplicated; D53.9 Nutritional anemia, unspecified; F43.10 Post-traumatic stress disorder, unspecified; G89.4 Chronic pain syndrome; I10 Essential (primary) hypertension; I25.10 Atherosclerotic heart disease of native coronary artery without angina pectoris; K42.9 Umbilical hernia without obstruction or gangrene; N31.9 Neuromuscular dysfunction of bladder, unspecified; L03.311 Cellulitis of abdominal wall; Z83.3 Family history of diabetes mellitus; W34.00XS Accidental discharge from unspecified firearms or gun, sequela; J44.9 Chronic obstructive pulmonary disease, unspecified; Z93.3 Colostomy status; N28.1 Cyst of kidney, acquired; D72.829 Elevated white blood cell count, unspecified; Z90.5 Acquired absence of kidney; F17.200 Nicotine dependence, unspecified, uncomplicated; N40.1 Benign prostatic hyperplasia with lower urinary tract symptoms; B96.4 Proteus (mirabilis) (morganii) as the cause of diseases classified elsewhere
CPT/HCPCS: 36415; 80048-TC; 80061-TC; 81000-TC; 82247-TC; 82248-TC; 83605-TC; 83735-TC; 84100-TC; 85025-TC; 87040-TC; 87070-TC; 87081-TC; 87086-TC; 87186-TC; A4216; A6403; G0378; J1170; J2185; J2270; J2405; J7030; Q9963

== ENCOUNTER 2020-05-17 19:41 | Emergency (ER) | payer MEDICAID ==
[~2020-05-17] VITALS: Ht 175.3 cm; Wt 88.9 kg
[~2020-05-17 19:41] MED LIST changes: -ASCO-352 PO; -CEPH-570 PO; -CLIN150C15 PO; -LIDO120C7 TP; +MERO500P IV; +SENN-18 PO
--- NOTE | 2020-05-17 19:45 | NUR ---
PT PIPEA FROM [facility] C/O SOB AND AMS. PER REPORT PT WAS FOUND ON HIS ROOM DESATTING. PT NOT RESPONDING TO QUESTIONS, SATTING 79% ON RA, AGONAL RESPOIRATIONS NOTED. RT AT BEDSIDE. DR DOOLEY AT BEDSIDE. PT CONNECTED TO THE COMIC WRITER AND POX.
--- NOTE | 2020-05-17 20:03 | NUR ---
XRAY AT BEDSIDE
[2020-05-17] MEDS ORDERED: NOREPINEPHRINE 4 MG/4 ML AMPUL IV ONE (20:09)
--- NOTE | 2020-05-17 20:15 | NUR ---
DR DOOLEY AT BEDSIDE FOR CENTRAL LINE INSERTION
[2020-05-17] MEDS: IV NS 0.9% 1,000 ML BAG IV ONE ×2 (20:16→21:00)
--- NOTE | 2020-05-17 20:27 | NUR ---
CENTRAL LINE INSERTED RIJ
[2020-05-17] MEDS ORDERED: CALC500T53 PO (20:36)
[2020-05-17] MEDS ORDERED: AMOX-430 PO (20:36)
[2020-05-17] MEDS ORDERED: GABA-536 PO (20:36)
[2020-05-17] MEDS ORDERED: SENN-261 PO (20:36)
[2020-05-17] MEDS ORDERED: TIZA4TAB5 PO (20:36)
[2020-05-17] MEDS ORDERED: FLUC200T8 PO (20:36)
--- NOTE | 2020-05-17 20:37 | NUR ---
RT pt brought in from facility to er bed 8 for resp distress. pt was found aloc. pt was intubated by ermd. intubated with ett size 7.5 at 23@lip. vent settings: AC 20 450 100% +5. no secretions suctioned via ett. diminished lung sounds. vent plugged in to red outlet. alarms on and audible. abg in one hr post intubation. will continue to monitor.
[2020-05-17 21:00] LABS: HEMOGLOBIN 12.8 g/dL (13.5-17.5); RED BLOOD CELL COUNT(AUTO) 4.79 MIL/uL (4.5-6.0)
[2020-05-17] MEDS ORDERED: PROPOFOL 10MG/ML 50ML 50 ML IV PRN (21:00)
[2020-05-17] MEDS ORDERED: PIPERACILLIN /TAZOBACTAM 3.375 G in IV D5W 50 ML IV ONE (21:00)
[2020-05-17 21:07] LABS: BASOPHILS # (AUTO) 0.2 /CMM (0.0-0.2); BASOPHILS % (AUTO) 0.6 % (0.0-2.0); HEMATOCRIT 42 % (39-51); LYMPHOCYTES # (AUTO) 2.3 /CMM (0.8-4.8); LYMPHOCYTES % (AUTO) 6.2 % (20.0-44.0); MEAN CORPUSCULAR HGB CONC 31 g/dl (31.0-36.0); MEAN CORPUSCULAR VOLUME 87 fL (80-96); MONOCYTES # (AUTO) 0.3 /CMM (0.1-1.30); MONOCYTES % (AUTO) 0.8 % (2.0-12.0); NEUTROPHILS # (AUTO) 34.5 /CMM (1.8-8.9); NEUTROPHILS % (AUTO) 92.4 % (43.0-81.0)
--- NOTE | 2020-05-17 21:09 | NUR ---
PT HR TRENDING DOWN FROM 120 TO 39. PULSES WERE CHECKED. NO PULSE. STARTED COMPRESSIONS. DR DOOLEY MADE AWARE.
--- NOTE | 2020-05-17 21:09 | NUR ---
SEE CODE SHEET
[2020-05-17 21:10] LABS: PLATELET COUNT (AUTO) 1004 /CMM (150-450); WHITE BLOOD COUNT (AUTO) 37.4 K/uL (4.3-11.0)
[2020-05-17 21:26] LABS: ALANINE AMINOTRANSFERASE 382 U/L (12-78); ALKALINE PHOSPHATASE 196 U/L (46-116); ASPARTATE AMINOTRANSFERASE 913 U/L (15-37); BILIRUBIN,DIRECT 0.2 mg/dL (0.0-0.2); BILIRUBIN,TOTAL 0.4 mg/dL (0.2-1.0); CALCIUM, SERUM 7.2 mg/dL (8.5-10.1); CARBON DIOXIDE 14 mmol/L (21-32); CHLORIDE 85 mmol/L (98-107); CREATININE 6.8 mg/dL (0.6-1.3); GLUCOSE 96 mg/dL (74-106); SODIUM SERUM 127 mmol/L (136-145); TOTAL PROTEIN, SERUM 9.7 g/dL (6.4-8.2); UREA NITROGEN, BLOOD 38 mg/dL (7-18)
[2020-05-17 21:29] VITALS: BP 47/21
--- NOTE | 2020-05-17 21:31 | NUR ---
TIME OF 2130
[2020-05-17 21:33] LABS: POTASSIUM 6.3 mmol/L (3.5-5.1)
--- NOTE | 2020-05-17 21:52 | NUR ---
SPOKE WITH RITCHIE FROM [facility]. NOT A CANDIDATE. REF #[id number]
[2020-05-17] MEDS ORDERED: ETOMIDATE 2 MG/ML VIAL IV ONE (22:00)
--- NOTE | 2020-05-17 22:00 | NUR ---
SPOKE WITH KONRAD, STATES THIS IS A PIGMENT WEIGHER'S CASE. #[id number]
--- NOTE | 2020-05-17 22:08 | NUR ---
ATTEMPTED TO CONTACT PT'S EMERGENCY CONTACT, LINE DISCONNECTED. CALLED [facility] FOR UPDATED FAMILY CONTACT INFORMATION, NO NUMBER.
--- NOTE | 2020-05-17 22:15 | NUR ---
Emelina hackett in [facility] - 05/17/20 at 2217 by TIMUR OLGA STRONG () [phone]
--- NOTE | 2020-05-17 22:16 | NUR ---
DR. DOOLEY SPEAKING WITH FAMILY, OLGA STRONG
--- NOTE | 2020-05-17 22:17 | NUR ---
OLGA HOSKINS (BROTHER) [phone]
--- NOTE | 2020-05-17 22:25 | NUR ---
CALLED PT'S PMD DR. WILLIS
[2020-05-17] MEDS ORDERED: NOREPINEPHRINE 8 MG in IV NS 0.9% 242 ML IV PRN (22:30)
--- NOTE | 2020-05-17 22:31 | NUR ---
SPOKE WITH PT'S BROTHER OLGA REQUESTING INFORMATION OF MORTUARY, WILL CALL BACK
[2020-05-17 23:01] LABS: BAND % (MANUAL) 12 % (0.0-5.0); NEUTROPHILS % (MANUAL) 84 (42-76)
[2020-05-17 23:02] LABS: LYMPHOCYTES % (MANUAL) 4 % (16-48)
--- NOTE | 2020-05-17 23:34 | NUR ---
PT TRANSFERRED TO [facility] WITH RN AND SECURITY
--- NOTE | 2020-05-18 21:31 | NUR ---
ADDENDUM: Intravenous End Time Documentation: Normal saline 2.6 liter (IV-WO) : start time: 2100 ; end time: 2130 : IV site: PARK RtYamini almonte Port #1 Norepinephrine 8 mg/250ml drip (8 mg in IV D5 water 250 mL) start time: 2100 End time: 2130 Port # 2
--- NOTE | 2020-05-18 21:43 | NUR ---
REC'D GRAM POSITIVE COCCI IN [facility]ERS RESULTS BY DORINA FROM LAB. DR. DOOLEY MADE AWARE
== END 2020-05-17 23:47 | disposition expired ==
LOC: ER 19:42
DX: I46.9 Cardiac arrest, cause unspecified (principal); R41.82 Altered mental status, unspecified; R09.02 Hypoxemia; G82.20 Paraplegia, unspecified; I10 Essential (primary) hypertension; G89.29 Other chronic pain; R10.9 Unspecified abdominal pain; Z90.49 Acquired absence of other specified parts of digestive tract; Z88.6 Allergy status to analgesic agent; Z79.899 Other long term (current) drug therapy; R00.0 Tachycardia, unspecified; Z87.828 Personal history of other (healed) physical injury and trauma
CPT/HCPCS: 31500; 36415; 36556; 71045 ×2; 76937; 80048; 80076; 83605; 84145; 84484; 85025; 85730; 87040 ×2; 87077 ×2; 87186; 87426; 92950; 93005; 99291; J2543; J3490; J7030; J7060